=== PATIENT | male | born 1940 | race Caucasian/White ===

== ENCOUNTER 2018-07-19 08:48 | Outpatient (CLI) | payer MEDICARE, SELFPAY ==
[2018-07-19 13:28] LABS: CREATININE 1.11 mg/dL (0.70-1.30); Magnesium 1.6 mg/dL (1.8-2.4); Potassium 4.1 mmol/L (3.5-5.1)
[2018-07-19 14:35] LABS: Hemoglobin A1C 6.7 % (4.5-6.2)
== END 2018-07-19 09:08 ==
PROVIDERS: PCP Family Medicine; Visit Provider Family Medicine
DX: E11.9 Type 2 diabetes mellitus without complications (principal); I10 Essential (primary) hypertension
CPT/HCPCS: 36415; 82565; 83036; 83735; 84132

== ENCOUNTER 2019-01-21 10:38 | Outpatient (CLI) | payer MEDICARE, SELFPAY ==
[2019-01-21 13:06] LABS: Hemoglobin A1C 8.2 % (4.5-6.2)
[2019-01-21 14:37] LABS: Potassium 4.6 mmol/L (3.5-5.1)
== END 2019-01-21 10:58 ==
PROVIDERS: PCP Family Medicine; Visit Provider Family Medicine
DX: E11.9 Type 2 diabetes mellitus without complications (principal)
CPT/HCPCS: 36415; 83036; 84132

== ENCOUNTER 2019-03-29 17:02 | Emergency (ER) | payer MEDICARE, SELFPAY ==
[2019-03-29] VITALS (36 sets, daily range): BP systolic 116–142; BP diastolic 54–118; PULSE 56–77; RESP 10–22; TEMP 36.6–37.1; O2SAT 91–97
--- NOTE | 2019-03-29 17:17 | W.ED.GENAD ---
Discharge Plan Disposition Patient Disposition: HOME Condition: Stable Discharge Details Chief Complaint: Dizzy/Sync Clinical Impression: Vertigo, Pre-syncope Primary Care Provider: Wes Enrique ED Provider: Raiza Gallo Home Meds and New Rx's Prescriptions: Continued alprazolam 0.5 mg tablet 0.5 mg PO HS PRN (Reason: insomnia) Qty: 10 RF: 0 chlorthalidone 25 mg tablet 25 mg PO DAILY RF: 0 empagliflozin-metformin 10-1,000 mg tablet, IR - ER, biphasic 24hr 1 tab PO DAILY Qty: 30 RF: 5 fluoxetine 10 mg tablet 10 mg PO DAILY Qty: 30 RF: 2 lisinopril 20 mg tablet 20 mg PO DAILY Qty: 90 RF: 3 (DME) Accu-Chek Guide strip See Dose Instructions .ROUTE .MEDSUPPLY Qty: 100 RF: 3 (DME) lancets [Accu-Chek Multiclix Lancet] misc See Dose Instructions .ROUTE .MEDSUPPLY Qty: 100 RF: 3 acetaminophen [Mapap Extra Strength] 500 MG tablet 1,000 mg PO PRN PRNRF: 0 Discharge Instructions Instructions: Vertigo (ED), Near Syncope (ED) Additional Instructions: Please return to the emergency department he develop any new or worsening symptoms or if you become otherwise concerned. It is extremely important that you call soon as possible to make an appointment to be seen in follow-up this visit by primary care doctor. You will need to have further evaluation for possible transient ischemic attack, which may include MRI of the brain, carotid ultrasounds, and echocardiogram of the heart, in addition to cardiac monitoring for possible cardiac arrhythmia. You have elected to leave the emergency department as opposed to being admitted as was recommended, you may change her mind at any time and return to the emergency department. Referrals: Wes Enrique [Primary Care Provider] - Discharge Data Discharge Date/Time-TO BE ENTERED AT DEPARTURE: 03/29/19 20:47 Medical Decision Making Cameron Mondragon is a 78-year-old man with a history of diabetes, hypertension who presented to the emergency department with episode of vertigo/presyncope after having just eaten very large meal, followed by persistent vertigo and then vomiting after which all symptoms resolved. Patient is now a symptomatic. Benign cardiopulmonary exam. Benign neurologic exam. Concern for CVA/TIA, metabolic/lyte disturbance, arrhythmia. Doubt ACS. Exam/history is not consistent with acute aortic pathology, PE, sepsis. Plan for EKG, chest x-ray, screening labs, CT head. Cannot obtain MRI at this time due to hours, anticipate admission for possible TIA. CT, chest x-ray nondiagnostic. Labs nondiagnostic. Patient continues to be symptomatic. Plan for admission for TIA. I discussed the patient with Dr. Garcia. Dr. Garcia discussed admission with the patient, who refuses admission at this time. He would like to follow-up with his primary care doctor for outpatient heart monitoring and further outpatient studies/evaluation. I discussed with patient the risks of leaving AGAINST MEDICAL ADVICE including , permanent disability, and patient continued to refuse admission. I had a lengthy discussion with the patient regarding return to emergency department precautions, that he may return to the emergency department anytime should he change his mind, and importance of outpatient follow-up. Patient verbalized understanding of the plan was amenable. Patient had decision-making capacity at time of this discussion. Patient was discharged home with clear plan for outpatient follow-up. All questions were answered. Medical Records Medical records reviewed: Yes I reviewed the patient's medical records. Imaging Data Radiologic Study: Attestation: I personally reviewed and interpreted this imaging study as follows: Radiologist's impression: EXAM: XR Chest, 2 Views EXAM DATE/TIME: 03/29/2019 5:46 PM CLINICAL HISTORY: 78 years old, male; Other: Weakness TECHNIQUE: Imaging protocol: XR of the chest, 2 views. COMPARISON: CR CHEST 2 VIEWS PA,LAT 01/02/2016 17:00 FINDINGS: Lungs: Unremarkable. No consolidation. Pleural space: Unremarkable. No pleural effusion. No pneumothorax. Heart/Mediastinum: Unremarkable. No cardiomegaly. Bones/joints: Unremarkable. IMPRESSION: No acute findings. EXAM: CT Head Without Contrast EXAM DATE/TIME: 03/29/2019 5:46 PM CLINICAL HISTORY: 78 years old, male; Dizziness TECHNIQUE: Imaging protocol: Computed tomography images of the head without contrast. Coronal and sagittal reformatted images were created and reviewed. Radiation optimization: All CT scans at this facility use at least one of these dose optimization techniques: automated exposure control; mA and/or kV adjustment per patient size (includes targeted exams where dose is matched to clinical indication); or iterative reconstruction. COMPARISON: No relevant prior studies available. 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 Mild small vessel ischemic white matter changes of aging. No evidence for acute hemorrhage or stroke. Ventricles: Moderate ventriculomegaly and prominent cortical sulci. Bones/joints: Unremarkable. No acute fracture. Sinuses: Visualized sinuses are unremarkable. No fluid levels. Mastoid air cells: Visualized mastoid air cells are well aerated. No mastoid effusion. Soft tissues: Unremarkable. IMPRESSION: No acute intracranial abnormality. Lab Data Lab results reviewed: Yes I reviewed the patient's lab results. Laboratory Tests Range/Units 03/29/19 03/29/19 03/29/19 17:24 17:24 18:30 WBC (4.4-10.8) k/cumm 6.79 RBC (4.50-6.00) m/cumm 4.75 Hgb (13.5-17.5) g/dL 13.9 Hct (40.0-50.0) % 41.9 MCV (80-95) fL 88.2 MCH (27.0-33.0) pg 29.3 MCHC (32.0-36.0) g/dL 33.2 RDW (11.8-14.1) % 14.4 H Plt Count (130-400) x1000/uL 231 MPV (8.0-11.0) fL 9.6 Immature Gran % 0.0 Neutrophils % 63.6 Lymphocytes % 27.5 Monocytes % 7.8 Eosinophils % 0.7 Basophils % 0.4 Absolute Neutrophils (1.2-6.7) k/cumm 4.31 Absolute Lymphocytes (1.2-3.4) k/cumm 1.87 Absolute Monocytes (0.11-0.7) k/cumm 0.53 Absolute Eosinophils (0.0-0.7) k/cumm 0.05 Absolute Basophils (0.0-0.2) k/cumm 0.03 Sodium (136-145) mmol/L 136 Potassium (3.5-5.1) mmol/L 3.8 Chloride (98-107) mmol/L 101 Carbon Dioxide (21.0-32.0) mmol/L 22.0 Anion Gap (3-11) mmol/L 13.0 H BUN (7-18) mg/dL 26 H Creatinine (0.70-1.30) mg/dL 0.97 Estimated GFR/1.73 m2 (mL/min/1.73m2) >= 60.00 Glucose (70-100) mg/dL 185 H Calcium (8.5-10.1) mg/dL 9.0 Total Bilirubin (0.2-1.0) mg/dL 0.7 AST (15-37) U/L 22 ALT (12-78) U/L 36 Alkaline Phosphatase (46-116) U/L 36 L Troponin I (0.00-0.06) ng/mL < 0.05 Total Protein (6.4-8.2) g/dL 7.2 Albumin (3.4-5.0) g/dL 3.8 Urine Color (Yellow) Yellow Urine Clarity (Clear) Clear Urine pH (5-8) 5.0 Ur Specific [place] (1.005-1.025) 1.010 Urine Protein (Negative) mg/dL Negative Urine Ketones (Negative) mg/dL 15 H Urine Blood (Negative) Negative Urine Nitrite (Negative) Negative Urine Bilirubin (Negative) Negative Urine Urobilinogen (Up TO 0.2) EU/dL 0.2 Ur Leukocyte Esterase (Negative) Negative Urine Glucose (Negative) mg/dL 500 H ECG Data Attestation: I personally reviewed and interpreted this ECG (s) as follows: Interpretation: EKG shows sinus rhythm at 78 with occasional PAC, no STEMI, nondiagnostic EKG HPI General Mode of arrival: EMS. Date/Time Provider Initiated Documentation: 03/29/19 17:17. Limitations to Documentation: no limitations. Information obtained by: patient, RN notes reviewed and old records reviewed. HPI Narrative: Cameron Mondragon is a 78-year-old man with a history of hypertension, diabetes presenting to the emergency department with vertigo. Patient reports that he drove home from [place] this morning, ate an unusually large meal upon arriving at home, and directly after eating developed a sensation of spinning, patient also felt that he might pass out. Sensation of lightheadedness seem to possible patient was still seated however vertigo persisted. Patient reports that he got up out of his seat and had difficulty with walking. Patient states that he felt like he was drunk. Patient reports that spinning sensation continued and he called the ambulance. Upon arrival of EMS, patient reports that he vomited twice, and his symptoms resolved. Patient reports that he currently feels very well in his usual state of health. Patient reports that prior to this occurrence earlier today, he has been feeling very well. No fevers, no pain, no shortness of breath, no cough, no diarrhea, no numbness, no weakness. No recent long distance travel. Prior to today has been eating and drinking as usual. Related Data Home Medications Medication Instructions Recorded Confirmed acetaminophen [Mapap Extra 1,000 mg PO PRN PRN 12/21/16 03/31/19 Strength] blood sugar diagnostic #100 each 09/28/18 03/31/19 lisinopril 20 mg tablet 20 mg PO DAILY #90 tab 09/28/18 03/31/19 empagliflozin 10 mg-metformin ER 1 tab PO DAILY #30 tab 10/05/18 03/31/19 1,000 mg tablet,extended release 24hr lancets #100 each 11/11/18 03/31/19 alprazolam 0.5 mg tablet 0.5 mg PO HS PRN #10 tab 01/21/19 03/31/19 chlorthalidone 25 mg tablet 25 mg PO DAILY 02/09/19 03/31/19 fluoxetine 10 mg tablet 10 mg PO DAILY #30 tab 03/08/19 03/31/19 Previous Rx's Medication Instructions Recorded blood sugar diagnostic #100 each 09/28/18 lisinopril 20 mg tablet 20 mg PO DAILY #90 tab 09/28/18 empagliflozin 10 mg-metformin ER 1 tab PO DAILY #30 tab 10/05/18 1,000 mg tablet,extended release 24hr lancets #100 each 11/11/18 alprazolam 0.5 mg tablet 0.5 mg PO HS PRN #10 tab 01/21/19 fluoxetine 10 mg tablet 10 mg PO DAILY #30 tab 03/08/19 Allergies Allergy/AdvReac Type Severity Reaction Status Date / Time Penicillins Allergy Severe Anaphylaxsi Unverified 03/31/19 13:44 s General Stated Complaint: Dizzy/Sync JYOTI: 3 Review of Systems Review of Systems Constitutional: denies fevers Eyes: denies eye pain ENT: denies facial pain, dental pain, sore throat Cardiovascular: denies chest pain, edema, reports lightheadedness Respiratory: denies SOB, cough GI: denies abdominal pain, vomiting, diarrhea : denies flank pain MSK: denies back pain, neck pain, arthralgias, myalgias Skin: Denies rash Neuro: denies headaches, numbness, weakness, reports vertigo, ataxia COUNT INCLUDES THE [facility] Medical History Borderline type 2 diabetes mellitus BPH (benign prostatic hyperplasia) ED (erectile dysfunction) HTN (hypertension) Overweight Sleep apnea Social History Smoking/Tobacco Use Status: Never Drug use: Never Substance use type: does not use Do you feel safe at home: Yes Do you feel safe in your relationship?: Yes Exam Narrative Exam Narrative: Constitutional: well and [id number], pleasant, conversing normally HENT: head atraumatic/normocephalic/normal inspection, mucous membranes moist Eyes: conjunctiva normal, sclera normal, pupils 3mm b/l ERRLA, extraocular movements intact without nystagmus Neck: no stridor, normal ROM, trachea midline Chest: normal inspection Resp: normal work of breathing, LCTAB Cardio: normal rate, normal rhythm, no murmur appreciated GI: abdomen soft, non-tender, non-distended Back: normal inspection, no rash Skin: warm, dry, normal color, no rash Neuro: alert, not altered, cranial nerves II through XII intact, motor 5 out of 5 throughout, normal tone Ext: no edema no posterior calf tenderness to palpation Psych: normal mood, normal affect, normal behavior Course Vital Signs Temperature 36.6 C 03/29/19 17:09 Pulse 64 03/29/19 17:09 Respiratory Rate 12 03/29/19 17:09 Blood Pressure 142/65 H 03/29/19 17:09 Pulse Oximetry 97 03/29/19 17:09 Temperature 36.6 C 03/29/19 17:09 Temperature Source Skin 03/29/19 17:09 Pulse 64 03/29/19 17:09 Respiratory Rate 12 03/29/19 17:09 Respiratory Effort Non-Labored 03/29/19 17:12 Blood Pressure 142/65 H 03/29/19 17:09 Blood Pressure Position Sitting 03/29/19 17:09 Pulse Oximetry 97 03/29/19 17:09 Oxygen Delivery Method Room Air 03/29/19 17:09 Oxygen Flow Rate 0 03/29/19 17:09
--- NOTE | 2019-03-29 17:45 | DI.COMBO_ITS ---
SYMPTOM/DIAGNOSIS: LIGHTHEADEDNESS, VERTIGO PA AND LATERAL CHEST: Comparison is made with 06/28/16. The heart size is normal. The lungs are well inflated and clear. No infiltrate, effusion or pneumothorax is seen. IMPRESSION: Negative chest xray. NONCONTRAST HEAD CT: There is mild atrophy consistent with the patient's age. 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 No acute infarct, hemorrhage or mass is seen. There is no skull fracture visualized. The sinuses and mastoid air cells appear clear. IMPRESSION: No acute abnormality.
[2019-03-29 18:16] LABS: Absolute Basophil Count 0.03 k/cumm (0.0-0.2); Absolute Eosinophil Count 0.05 k/cumm (0.0-0.7); Absolute Lymphocyte Count 1.87 k/cumm (1.2-3.4); Absolute Monocyte Count 0.53 k/cumm (0.11-0.7); Absolute Neutrophil Count 4.31 k/cumm (1.2-6.7); Basophils % 0.4; Eosinophils % 0.7; HCT 41.9 % (40.0-50.0); HGB 13.9 g/dL (13.5-17.5); Lymphocytes % 27.5; Mean Corp. HGB Concentration 33.2 g/dL (32.0-36.0); Mean Corpuscular Hemoglobin 29.3 pg (27.0-33.0); Mean Corpuscular Volume 88.2 fL (80-95); Mean Platelet Volume 9.6 fL (8.0-11.0); Monocytes % 7.8; Neutrophils % 63.6; Platelet Count 231 x1000/uL (130-400); RBC 4.75 m/cumm (4.50-6.00); RBC Distribution Width 14.4 % (11.8-14.1); White Blood Cell Count 6.79 k/cumm (4.4-10.8)
[2019-03-29 18:20] LABS: ALT 36 U/L (12-78); AST 22 U/L (15-37); Albumin 3.8 g/dL (3.4-5.0); Alkaline Phosphatase 36 U/L (46-116); BUN 26 mg/dL (7-18); Bilirubin, Total 0.7 mg/dL (0.2-1.0); CREATININE 0.97 mg/dL (0.70-1.30); Chloride 101 mmol/L (98-107); Glucose 185 mg/dL (70-100); Potassium 3.8 mmol/L (3.5-5.1); Sodium 136 mmol/L (136-145); Total Protein 7.2 g/dL (6.4-8.2)
[2019-03-29 18:21] LABS: Troponin I < 0.05 ng/mL (0.00-0.06)
[2019-03-29 18:36] LABS: Bilirubin Negative (Negative); Blood Negative (Negative); Clarity Clear (Clear); Glucose 500 mg/dL (Negative); Ketones 15 mg/dL (Negative); Leukocyte Esterase Negative (Negative); Nitrite Negative (Negative); Urobilinogen 0.2 EU/dL (Up TO 0.2)
--- NOTE | 2019-03-29 18:52 | DI.VRAD_ITS ---
EXAM: CT Head Without Contrast EXAM DATE/TIME: 03/29/2019 5:46 PM CLINICAL HISTORY: 78 years old, male; Dizziness TECHNIQUE: Imaging protocol: Computed tomography images of the head without contrast. Coronal and sagittal reformatted images were created and reviewed. Radiation optimization: All CT scans at this facility use at least one of these dose optimization techniques: automated exposure control; mA and/or kV adjustment per patient size (includes targeted exams where dose is matched to clinical indication); or iterative reconstruction. COMPARISON: No relevant prior studies available. 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 Mild small vessel ischemic white matter changes of aging. No evidence for acute hemorrhage or stroke. Ventricles: Moderate ventriculomegaly and prominent cortical sulci. Bones/joints: Unremarkable. No acute fracture. Sinuses: Visualized sinuses are unremarkable. No fluid levels. Mastoid air cells: Visualized mastoid air cells are well aerated. No mastoid effusion. Soft tissues: Unremarkable. IMPRESSION: No acute intracranial abnormality. Dictated and Authenticated by: Padma Richardson MD. Ordering:MICHELLE Eastman MD
--- NOTE | 2019-03-29 18:53 | DI.VRAD_ITS ---
EXAM: XR Chest, 2 Views EXAM DATE/TIME: 03/29/2019 5:46 PM CLINICAL HISTORY: 78 years old, male; Other: Weakness TECHNIQUE: Imaging protocol: XR of the chest, 2 views. COMPARISON: CR CHEST 2 VIEWS PA,LAT 01/02/2016 17:00 FINDINGS: Lungs: Unremarkable. No consolidation. Pleural space: Unremarkable. No pleural effusion. No pneumothorax. Heart/Mediastinum: Unremarkable. No cardiomegaly. Bones/joints: Unremarkable. IMPRESSION: No acute findings. Dictated and Authenticated by: Padma Richardson MD. Ordering:MICHELLE Eastman MD
== END 2019-03-29 20:47 | disposition home or self-care (01) ==
PROVIDERS: Emergency Provider Student in an Organized Health Care Education/Training Program; PCP Family Medicine
DX: R42 Dizziness and giddiness (principal); R11.2 Nausea with vomiting, unspecified; E11.9 Type 2 diabetes mellitus without complications; Z79.84 Long term (current) use of oral hypoglycemic drugs; I10 Essential (primary) hypertension
CPT/HCPCS: 36415; 80053; 93005; 99285; 70450; 71046; 81003; 84484; 85025; 93010

== ENCOUNTER 2019-04-13 20:59 | Emergency (ER) | payer MEDICARE, SELFPAY ==
[2019-04-13 21:04] VITALS: BP 156/71; PULSE 68; RESP 18; TEMP 36.8; O2SAT 95
[2019-04-13] MEDS: Lidocaine/Epinephri/Tetracaine Topical Gel 3 ML TP (21:56)
[2019-04-13 22:00] LABS: Bilirubin Negative (Negative); Blood Small (Negative); Clarity Clear (Clear); Glucose 500 mg/dL (Negative); Ketones Negative (Negative); Leukocyte Esterase Negative (Negative); Nitrite Negative (Negative); Specific Gravity 1.015 (1.005-1.025); Urobilinogen 0.2 EU/dL (Up TO 0.2); pH 5.5 (5-8)
--- NOTE | 2019-04-13 22:15 | ED.GENADUL_ITS ---
Discharge Plan Disposition Patient Disposition: HOME Discharge Details Chief Complaint: Trauma Clinical Impression: Fall, Contusion of lower back, Hematuria Primary Care Provider: Wes Enrique ED Provider: Roman Gallo Home Meds and New Rx's Prescriptions: Continued alprazolam 0.5 mg tablet 0.5 mg PO HS PRN (Reason: insomnia) Qty: 10 RF: 0 chlorthalidone 25 mg tablet 25 mg PO DAILY RF: 0 empagliflozin-metformin 10-1,000 mg tablet, IR - ER, biphasic 24hr 1 tab PO DAILY Qty: 30 RF: 5 fluoxetine 10 mg tablet 10 mg PO DAILY Qty: 30 RF: 2 lisinopril 20 mg tablet 20 mg PO DAILY Qty: 90 RF: 3 (DME) Accu-Chek Guide strip See Dose Instructions .ROUTE .MEDSUPPLY Qty: 100 RF: 3 (DME) lancets [Accu-Chek Multiclix Lancet] misc See Dose Instructions .ROUTE .MEDSUPPLY Qty: 100 RF: 3 acetaminophen [Mapap Extra Strength] 500 MG tablet 1,000 mg PO PRN PRNRF: 0 metformin 1,000 mg Tablet 1,000 mg PO HS RF: 0 Discharge Instructions Instructions: Fall Prevention for Older Adults (ED), Hematuria (ED), Contusion in Adults (ED) Additional Instructions: Please follow-up with your doctor. Return to the ER for worsening or new concerning symptoms. Referrals: Wes Enrique. [Primary Care Provider] - Medical Decision Making 10:10p -- 78yo m here after fall from 2 ft stool to floor, impacting stool rt low back, with right low back pain and tenderness. Mild hypertension. Not tachycardic. Abdominal exam benign. Patient also with laceration to left 2nd digit without bleeding and abrasion rt leg. Discussed with patient differential diagnosis regarding traumatic injury to rt flank - I specifically discussed potential for life threatening and lifestyle modifying disease including retroperitoneal hemorrhage vs contusion vs renal injury. We discussed diagnostics for ruling out traumatic injury - patient provided informed refusal of CT imaging. He agrees to urinalysis understanding diagnostic limitations of this study. LET applied to wound. Plan for wound irrigatedand primary closure. Tetanus utd per paralegal legal secretary. 10:30p -- Patient refusing wound irrigation and primary closure. I discussed risk of not appropriately treating and he verbalized understanding and provided informed refusal noting that he has had similar lacerations in the past that healed well and that he feels it is already healing. He was agreeable to topical antibioic and sterile dressing. UA reveals hematuria. Plan to CT abd and pelv. He agrees with CT. 11:30p -- CT interpreted by radiology: IMPRESSION: 1. No acute findings. 2. Cholelithiasis. 3. Colonic diverticulosis. Results d/w patient. Patient reassessed and remained stable. Patient advised to follow-up with PCP regarding hematuria. HPI General Mode of arrival: ambulatory . Date/Time Provider Initiated Documentation: 04/13/19 21:22 . Limitations to Documentation: no limitations . Information obtained by: patient . HPI Narrative: 78-year-old male presents with chief complaint of right low back pain after fall from 2 foot stool to the ground. Patient notes he landed on the stool and impacted his right low back. This occurred about 45 minutes prior to arrival. Pain is mild to moderate and worse on palpation of the area. He denies associated abdominal pain. No hematuria. No head trauma or loss of consciousness. No neck pain. No chest pain or abdominal pain. Patient notes he is not on any blood thinners or antiplatelet agents. He also sustained abrasion to his right leg and laceration to left second digit. Related Data Home Medications Medication Instructions Recorded Confirmed acetaminophen [Mapap Extra 1,000 mg PO PRN PRN 12/21/16 04/13/19 Strength] blood sugar diagnostic #100 each 09/28/18 03/31/19 lisinopril 20 mg tablet 20 mg PO DAILY #90 tab 09/28/18 04/13/19 empagliflozin 10 mg-metformin ER 1 tab PO DAILY #30 tab 10/05/18 04/13/19 1,000 mg tablet,extended release 24hr lancets #100 each 11/11/18 03/31/19 alprazolam 0.5 mg tablet 0.5 mg PO HS PRN #10 tab 01/21/19 03/31/19 chlorthalidone 25 mg tablet 25 mg PO DAILY 02/09/19 04/13/19 fluoxetine 10 mg tablet 10 mg PO DAILY #30 tab 03/08/19 03/31/19 metformin 1,000 mg PO HS 04/13/19 04/13/19 Previous Rx's Medication Instructions Recorded blood sugar diagnostic #100 each 09/28/18 lisinopril 20 mg tablet 20 mg PO DAILY #90 tab 09/28/18 empagliflozin 10 mg-metformin ER 1 tab PO DAILY #30 tab 10/05/18 1,000 mg tablet,extended release 24hr lancets #100 each 11/11/18 alprazolam 0.5 mg tablet 0.5 mg PO HS PRN #10 tab 01/21/19 fluoxetine 10 mg tablet 10 mg PO DAILY #30 tab 03/08/19 Allergies Allergy/AdvReac Type Severity Reaction Status Date / Time Penicillins Allergy Severe Anaphylaxsi Unverified 03/31/19 13:44 s General Stated Complaint: Trauma JYOTI: 3 Review of Systems Constitutional Denies headache(s) ENT Denies headache(s) Cardiovascular Denies chest pain Gastrointestinal Denies abdominal pain and Denies nausea Genitourinary Denies hematuria Integumentary/Breasts Reports as per HPI Neurologic Denies headache(s) PFSH Social History Smoking/Tobacco Use Status: Never Alcohol Intake: never Drug use: Never Substance use type: does not use Do you feel safe at home: Yes Do you feel safe in your relationship?: Yes Exam Const General: cooperative and no acute distress HENMT Head: normocephalic and atraumatic Mouth: moist mucous membranes Eyes EOM: EOM intact bilaterally Neck Neck: trachea midline and supple Resp Auscultation: clear to auscultation bilaterally, no rales, no rhonchi and no wheezes Cardio Jugular venous pressure: no JVD Rate: regular rate and not tachycardic Rhythm: regular rhythm GI Palpation: soft, not firm, no guarding, no masses, not rigid and nontender Back/Spine/Pelvis Back: back tenderness (rt lower lateral back with abrasion, ttp, no crepitus, no echymosis ) Cervical Spine: cervical ROM normal and other (no midline tenderness) Thoracic/Lumbar Spine: thoracic and lumbar spine normal to inspection Pelvis: no pain with anterior-posterior compression and no pain with lateral com pression Skin General skin exam: no rashes or lesions noted Trauma: abrasion (rt ant lower leg) and laceration (1.5cm left 2nd digit PIP dorsal) Neuro General: alert, awake, oriented x3 and tone normal Extrem General: no edema Psych Appearance: grossly normal Mental Status: mental status grossly normal Course Vital Signs Temperature 36.8 C 04/13/19 21:04 Pulse 68 04/13/19 21:04 Respiratory Rate 18 04/13/19 21:04 Blood Pressure 156/71 H 04/13/19 21:04 Pulse Oximetry 95 04/13/19 21:04 Temperature 36.8 C 04/13/19 21:04 Temperature Source Skin 04/13/19 21:04 Pulse 68 04/13/19 21:04 Respiratory Rate 18 04/13/19 21:04 Respiratory Effort Non-Labored 04/13/19 21:15 Respiratory Depth Normal 04/13/19 21:15 Respiratory Pattern Normal 04/13/19 21:15 Blood Pressure 156/71 H 04/13/19 21:04 Blood Pressure Position Sitting 04/13/19 21:04 Pulse Oximetry 95 04/13/19 21:04 Oxygen Delivery Method Nasal Cannula 04/13/19 21:04 Pain Level 1 04/13/19 21:04
[2019-04-13 22:19] LABS: WBC 0-2 HPF (0-5)
[2019-04-13 22:20] LABS: Bacteria Rare HPF (Negative); C & S Indicated? No; Casts Negative LPF (Negative); Crystals Negative HPF (Negative); Epithelial Cells Rare HPF (Negative); Mucus Negative (Negative); Other Cells Negative (Negative)
[2019-04-13] MEDS: Normal Saline Flush 10 ML SYR IVP (22:42)
[2019-04-13 22:49] LABS: Abs Immature Grans 0.02 k/cumm (0.0-0.09); Absolute Basophil Count 0.04 k/cumm (0.0-0.2); Absolute Eosinophil Count 0.06 k/cumm (0.0-0.7); Absolute Lymphocyte Count 1.84 k/cumm (1.2-3.4); Absolute Monocyte Count 0.48 k/cumm (0.11-0.7); Absolute Neutrophil Count 5.17 k/cumm (1.2-6.7); Basophils % 0.5; Eosinophils % 0.8; HCT 46.8 % (40.0-50.0); HGB 15.2 g/dL (13.5-17.5); Immature Grans % 0.3; Lymphocytes % 24.2; Mean Corp. HGB Concentration 32.5 g/dL (32.0-36.0); Mean Corpuscular Hemoglobin 29.2 pg (27.0-33.0); Mean Platelet Volume 9.2 fL (8.0-11.0); Monocytes % 6.3; Neutrophils % 67.9; Platelet Count 297 x1000/uL (130-400); RBC Distribution Width 14.3 % (11.8-14.1); White Blood Cell Count 7.61 k/cumm (4.4-10.8)
[2019-04-13] MEDS: Omnipaque 350 MG/ML 100 ML BTL IJ (22:49)
--- NOTE | 2019-04-13 22:55 | DI.CT_ITS ---
SYMPTOM/DIAGNOSIS: FALL, IMPACTING RT LOW BACK, TTP RT LOW BACK CT ABDOMEN AND PELVIS: CT scan of the abdomen and pelvis was performed following the uneventful administration of intravenous contrast material. Comparison is 08/12/17 No acute findings are seen in the lung bases. There is diffuse decreased attenuation of the liver, consistent with fatty infiltration. No hepatic mass or laceration is present. The portal, superior mesenteric and splenic veins are patent. There stones seen within the gallbladder. No biliary ductal dilatation is present. The pancreas is unremarkable. The spleen is normal in size. There are varices seen in the left upper quadrant. The adrenal glands are unremarkable. The kidneys show normal and symmetric enhancement. No suspicious renal mass or obstruction is seen. The urinary bladder is intact. There does appear to be a diverticulum arising from the right aspect of the bladder. The prostate gland appears enlarged. There does appear to be a defect in the bladder suggesting a prior TURP. There is diverticulosis of the colon but no evidence of acute diverticulitis. No evidence of bowel obstruction or inflammation. There is a normal appendix present. The aorta is of normal caliber. No significant abdominal or pelvic adenopathy, ascites or pneumoperitoneum seen. Degenerative changes are seen in the spine. No acute fracture is appreciated. IMPRESSION: No acute abnormality. Chronic findings in the abdomen and pelvis as described above.
[2019-04-13 23:03] LABS: ALT 45 U/L (12-78); AST 27 U/L (15-37); Albumin 4.3 g/dL (3.4-5.0); Alkaline Phosphatase 37 U/L (46-116); BUN 32 mg/dL (7-18); Bilirubin, Total 0.6 mg/dL (0.2-1.0); CREATININE 1.06 mg/dL (0.70-1.30); Calcium 9.8 mg/dL (8.5-10.1); Chloride 100 mmol/L (98-107); Glucose 168 mg/dL (70-100); Sodium 138 mmol/L (136-145); Total Protein 8.7 g/dL (6.4-8.2)
--- NOTE | 2019-04-13 23:13 | DI.VRAD_ITS ---
EXAM: CT Abdomen and Pelvis With Contrast EXAM DATE/TIME: 04/13/2019 10:36 PM CLINICAL HISTORY: 78 years old, male; Injury or trauma; Fall; Initial encounter; Blunt; Injury date: 04/13/2019; Injury details: Fell from stool, impacted right lower back with board, microscopic hematuria TECHNIQUE: Imaging protocol: Computed tomography images of the abdomen and pelvis with intravenous contrast. Radiation optimization: All CT scans at this facility use at least one of these dose optimization techniques: automated exposure control; mA and/or kV adjustment per patient size (includes targeted exams where dose is matched to clinical indication); or iterative reconstruction. Contrast material: [id number]; Contrast volume: 100 ml; Contrast route: IV RAC 20G; COMPARISON: CT ABD PELVIS WITH CONTRAST 08/12/2017 3:32 AM FINDINGS: Liver: No suspicious lesions. Gallbladder and bile ducts: Several stones in the gallbladder. Pancreas: Unremarkable. No ductal dilation. Spleen: No suspicious lesions. Adrenals: Unremarkalbe. No suspicious mass. Kidneys and ureters: Unremarkable. No hydro. No suspicious lesions. Stomach and bowel: Colonic diverticulosis. Appendix: No evidence of appendicitis. Intraperitoneal space: No free air. No significant fluid collection. Vasculature: Unremarkable. No acute findings Lymph nodes: Unremarkable. Bladder: Unremarkable as visualized. Reproductive: Large prostate gland with findings suggesting a TURP. Bones/joints: No acute fracture. No dislocation. Soft tissues: Unremarkable. IMPRESSION: 1. No acute findings. 2. Cholelithiasis. 3. Colonic diverticulosis. Dictated and Authenticated by: Regis Guzman MD. Ordering:[id number] Owens MD
[2019-04-13 23:20] VITALS: BP 128/76; PULSE 65; RESP 16; TEMP 36.9; O2SAT 95
== END 2019-04-13 23:28 | disposition home or self-care (01) ==
PROVIDERS: Emergency Provider Student in an Organized Health Care Education/Training Program; PCP Family Medicine
DX: S30.0XXA Contusion of lower back and pelvis, initial encounter (principal); R31.9 Hematuria, unspecified; S61.211A Laceration without foreign body of left index finger without damage to nail, initial encounter; S80.811A Abrasion, right lower leg, initial encounter; W08.XXXA Fall from other furniture, initial encounter; I10 Essential (primary) hypertension; E11.9 Type 2 diabetes mellitus without complications; Z79.84 Long term (current) use of oral hypoglycemic drugs
CPT/HCPCS: 36415; 80053; 99285; 74177; 81003; 81015; 85025; 99284; J3490

== ENCOUNTER 2019-04-22 11:19 | Outpatient (CLI) | payer MEDICARE, SELFPAY ==
[2019-04-22 12:48] LABS: Hemoglobin A1C 7.8 % (4.5-6.2)
== END 2019-04-22 11:39 ==
PROVIDERS: PCP Family Medicine; Visit Provider Family Medicine
DX: E11.9 Type 2 diabetes mellitus without complications (principal)
CPT/HCPCS: 36415; 83036

== ENCOUNTER 2019-10-12 10:08 | Outpatient (CLI) | payer MEDICARE, SELFPAY ==
[2019-10-12 12:37] LABS: Calculated LDL 41 mg/dL (<100); Cholesterol 158 mg/dL (<200); HDL Cholesterol 90 mg/dL (40-60); Triglyceride 137 mg/dL (<150)
[2019-10-12 13:36] LABS: Hemoglobin A1C 7.5 % (3.8-5.6)
== END 2019-10-12 10:28 ==
PROVIDERS: Nurse Practitioner Family; PCP Family Medicine; Visit Provider Family Medicine
DX: E11.65 Type 2 diabetes mellitus with hyperglycemia (principal)
CPT/HCPCS: 36415; 80061; 83036

== ENCOUNTER 2020-03-16 08:30 | Day surgery (SDC) | payer MEDICARE, SELFPAY ==
[2020-03-16 08:49] VITALS: BP 147/77; PULSE 74; RESP 16; TEMP 36.1; O2SAT 16
[2020-03-16] MEDS: Lactated Ringers 1,000 ML 80 ML IV (09:18)
[2020-03-16] MEDS: CLINDAMYCIN 600 MG/50 ML BAG 100 MG IVPB (10:24)
[2020-03-16] MEDS: Bupivacaine 0.5% Pres-Free 30 ML VIAL (10:31)
[2020-03-16] MEDS: Dexamethasone 10 MG/ML VIAL 4 MG IJ (10:50)
--- NOTE | 2020-03-16 10:57 | ROE_ITS ---
Date of service: 03/16/20 Time of Service: 10:57 Operative Note Operative Note DATE OF PROCEDURE: 03/16/20 PRE-OP DIAGNOSIS: Hammertoe deformity right fifth digit POST-OP DIAGNOSIS: same PROCEDURE: Arthroplasty right fifth digit SURGEON: Scooby Wilks ANESTHESIA: local ESTIMATED BLOOD LOSS: 1 PATHOLOGY: none sent COMPLICATIONS: None Patient was transported to: same day Patient's condition: stable Indications: 71-year-old white male with chronic pain associated with a rigidly contracted right fifth hammertoe. Nonoperative treatments have failed to provide relief of symptoms and he has opted for surgical correction. He understands potential for pain, scarring, infection, wound dehiscence, floppy digit, the need for revisional procedures. Informed consents been obtained no promises made final outcome of surgery. Procedure Description: Cameron was brought to the operative suite placed in the supine position with the right fifth digit is anesthetized with 4 cc of a 50: 50 mixture 1% lidocaine with epinephrine, 0.5% Marcaine plain. The foot was then prepped and draped in the usual sterile podiatric fashion. Timeout was performed per [facility] protocol. Attention was directed to the right fifth toe with 2 converging semielliptical incisions were placed dorsal laterally over the PIPJ encompassing the hypertrophic corn. The skin wedge was excised. Soft tissue mobilization was performed and the PIPJ easily identified. With a #15 scalpel a transverse tenotomy capsulotomy was performed right at the joint irsael n. The medial lateral collaterals were released. The head of the proximal phalanx was delivered into the wound. Significant degenerative reticulocyte changes were appreciated. With double-action bone cutting forceps the 80 proximal phalangeal head was resected at its surgical neck. All rough and bony edges were rasped smooth. Excellent correction was identified of the deformity. Copious irrigation was performed. The extensor tendon was repaired end-to-end with 3-0 Vicryl simple interrupted suture technique. The skin was then coapted with simple interrupted suture of 4-0 nylon. 4 mg dexamethasone phosphate was infused proximally deeply into the soft tissue. Xeroform gauze fluff compression dressings were applied. Cameron left the procedure room with vascular status intact, sharp and sponge counts correct. He will be followed by myself in the office next week. Dictated with Margaret naturally speaking accuracy not guaranteed.
--- NOTE | 2020-03-16 11:01 | PDOC.DSDIS_ITS ---
Discharge Plan Disposition Patient Disposition: HOME Condition: Good Discharge Details Reason For Visit: HAMMERTOE (R) 5 Attending Provider: Scooby Wilks Primary Care Provider: Wes Enrique Home Meds and New Rx's Prescriptions: Continued lisinopril 20 mg tablet 20 mg PO DAILY Qty: 90 RF: 3 metformin 1,000 mg tablet 1,000 mg PO HS Qty: 90 RF: 3 empagliflozin-metformin 10-1,000 mg tablet, IR - ER, biphasic 24hr 1 tab PO DAILY Qty: 30 RF: 11 chlorthalidone 25 mg tablet 25 mg PO DAILY Qty: 90 RF: 3 (DME) FreeStyle Sven 14 Day [place] Misc See Rx Instructions .ROUTE .MEDSUPPLY Qty: 1 RF: 0 (DME) FreeStyle Sven 14 Day Sensor Kit See Rx Instructions .ROUTE .MEDSUPPLY Qty: 2 RF: 11 (DME) blood-glucose meter [Accu-Chek Guide Glucose Meter] Misc See Rx Instructions .ROUTE .MEDSUPPLY Qty: 1 RF: 0 (DME) Accu-Chek Guide test strips Strip See Dose Instructions .ROUTE .MEDSUPPLY Qty: 100 RF: 3 (DME) Accu-Chek Guide test strips Strip See Rx Instructions .ROUTE .MEDSUPPLY Qty: 100 RF: 3 (DME) lancets [Accu-Chek Multiclix Lancet] Misc See Dose Instructions .ROUTE .MEDSUPPLY Qty: 100 RF: 3 Discharge Instructions Activity:: Activity as Tolerated Remove Dressings/Wound Care:: Do Not Remove Shower/Bathe:: Cover Diet:: Normal Diet Discharge Orders Discharge Orders: Discharge Order (Routine); Ordered 03/16/20 Ordered By: Scooby Wilks DS: Diagnosis Discharge Diagnosis (1) Hammertoe of right foot: Status: Acute
== END 2020-03-16 11:22 | disposition home or self-care (01) ==
PROVIDERS: PCP Family Medicine; Visit Provider Podiatrist
PROC: (CPT 28285; principal; 2020-03-16 10:00)
DX: M20.41 Other hammer toe(s) (acquired), right foot (principal)
CPT/HCPCS: 28285; J1100

== ENCOUNTER 2020-08-09 02:32 | Outpatient (CLI) | payer MEDICARE, SELFPAY ==
[2020-08-09 17:34] LABS: Calculated LDL 53 mg/dL (<100); Cholesterol 156 mg/dL (<200); HDL Cholesterol 90 mg/dL (40-60); Potassium 4.4 mmol/L (3.5-5.1); Triglyceride 68 mg/dL (<150)
== END 2020-08-09 02:52 ==
PROVIDERS: PCP Family Medicine; Visit Provider Family Medicine
DX: I10 Essential (primary) hypertension (principal); E78.5 Hyperlipidemia, unspecified
CPT/HCPCS: 36415; 80061; 84132

== ENCOUNTER 2020-09-05 04:14 | Outpatient (CLI) | payer MEDICARE, SELFPAY ==
[2020-09-06 15:08] LABS: COVID-19 RT-PCR UVMMC Result Negative (Negative)
== END 2020-09-05 04:34 ==
PROVIDERS: PCP Family Medicine; Visit Provider Family Medicine
DX: Z20.822 Contact with and (suspected) exposure to COVID-19 (principal)
CPT/HCPCS: U0003

== ENCOUNTER 2021-02-03 03:03 | Emergency (ER) | payer MEDICARE, SELFPAY ==
[2021-02-03 03:08] VITALS: BP 152/96; PULSE 92; RESP 18; TEMP 36.6; O2SAT 97
--- NOTE | 2021-02-03 03:42 | ED.GENADUL_ITS ---
Discharge Plan Disposition Patient Disposition: HOME Condition: Good Discharge Details Clinical Impression: Epistaxis Primary Care Provider: Wes Enrique ED Provider: Gustavo Pederson Home Meds and New Rx's Prescriptions: Continued (DME) FreeStyle Sven 14 Day [place] Misc See Rx Instructions .ROUTE .MEDSUPPLY Qty: 1 RF: 0 (DME) FreeStyle Sven 14 Day Sensor Kit See Rx Instructions .ROUTE .MEDSUPPLY Qty: 2 RF: 11 (DME) blood-glucose meter [Accu-Chek Guide Glucose Meter] Misc See Rx Instructions .ROUTE .MEDSUPPLY Qty: 1 RF: 0 (DME) Accu-Chek Guide test strips Strip See Dose Instructions .ROUTE .MEDSUPPLY Qty: 100 RF: 3 (DME) Accu-Chek Guide test strips Strip See Rx Instructions .ROUTE .MEDSUPPLY Qty: 100 RF: 3 (DME) lancets [Accu-Chek Multiclix Lancet] Misc See Dose Instructions .ROUTE .MEDSUPPLY Qty: 100 RF: 3 lisinopril 20 mg tablet 20 mg PO DAILY Qty: 90 RF: 3 chlorthalidone 25 mg tablet 25 mg PO DAILY Qty: 90 RF: 3 metformin 1,000 mg tablet 1,000 mg PO BID Qty: 180 RF: 3 Discharge Instructions Instructions: Nosebleed (ED) Additional Instructions: Please make sure the inside of your nose is well moisturized with Vaseline every evening before you go to bed and in the morning when you wake up. Please make sure your water reservoir is filled in your CPAP machine if you do use it. Please use the nasal clamp we have provided to help with any small recurrence of bleeding recurs. We have placed a referral with the ear nose throat doctor in this area. You should be getting a call from their office in the next few days to set up an appointment. If you notice any worsening of your symptoms, or any new symptoms such as vomiting, diarrhea, fever, chills, shortness of breath, chest pain, numbness, weakness, or fainting , please return immediately to the emergency department for reevaluation. Please follow up with your primary care provider as soon as possible for reassessment and reevaluation. As always, it was a pleasure participating in your medical care today. Referrals: Shane Langston, [OSTEOPATHIC DOCTOR] - Haider Mckeon MD [ [facility] STAFF PHYSICIAN] - Wes Enrique [Primary Care Provider] - Medical Decision Making This is a pleasant 80-year-old male with a past medical history of hypertension, type 2 diabetes, BPH, and previous nosebleeds who presents today for evaluation of nosebleed. Patient states that over the last 3 days he has had intermittent mild nosebleeds from his left nare, however this evening he woke up and it was notably significant. He came to the ER for further assessment. By the time he arrived in the ER the majority of the bleeding had completely stopped. He denies any pain or trauma. He is not on any blood thinners. He did take a few ibuprofen recently and is unsure if this has led to any of his symptoms. He denies chest pain, shortness of breath, or headache. He denies any digital exploration. He does admit to using his CPAP more recently, which may have contributed. No other complaints at this time. No other modifying factors. Exam demonstrates no active bleeding in the nose at all at this time. No bleeding in the posterior oropharynx. Patient was observed for an extended period here in the emergency department. He developed no recurrence of his nosebleed. No indication for nasal packing or Rhino Rocket at this time. Patient will be sent home with a nasal clamp. Will put in referral at the patient's request for follow-up with ENT for potential cauterization. The patient has had his right nare cauterized in the past. Discussed the importance of keeping his water reservoir filled for his CPAP machine, as well as the importance of avoiding any cold or dry air during sleep. Recommend continued moisturizer to the inside of the nose with Vaseline. I have extensively reviewed the treatment plan and discharge instructions with the patient. I have addressed all patient concerns at this time. The patient was made aware of what symptoms to monitor for that would warrant a return to the emergency department. Discussed the plan with the patient, they demonstrate verbal understanding and agreement with our assessment and plan at this time. The documentation in this chart was dictated using [employer] dictation software. Please excuse any dictation errors. Of note on further discussion with the patient it actually appears that he was taking aspirin today and yesterday for his sore back. I suspect this is likely the largest contributing component to his nosebleed tonight. We have recommended to the patient that he avoid aspirin for the time being. HPI General Date/Time Provider Initiated Documentation: 02/03/21 03:04 . HPI Narrative: This is a pleasant 80-year-old male with a past medical history of hypertension, type 2 diabetes, BPH, and previous nosebleeds who presents today for evaluation of nosebleed. Patient states that over the last 3 days he has had intermittent mild nosebleeds from his left nare, however this evening he woke up and it was notably significant. He came to the ER for further assessment. By the time he arrived in the ER the majority of the bleeding had completely stopped. He denies any pain or trauma. He is not on any blood thinners. He did take a few ibuprofen recently and is unsure if this has led to any of his symptoms. He denies chest pain, shortness of breath, or headache. He denies any digital exploration. He does admit to using his CPAP more recently, which may have contributed. No other complaints at this time. No other modifying factors. Related Data Home Medications Medication Instructions Recorded Confirmed flash glucose scanning reader #1 each 11/08/19 08/07/20 flash glucose sensor #2 each 02/17/20 08/07/20 blood sugar diagnostic #100 each 02/24/20 08/07/20 blood-glucose meter #1 each 02/24/20 08/07/20 blood sugar diagnostic #100 each 03/09/20 08/07/20 lancets #100 each 03/09/20 08/07/20 lisinopril 20 mg tablet 20 mg PO DAILY #90 tab 07/30/20 02/03/21 chlorthalidone 25 mg tablet 25 mg PO DAILY #90 tab 07/31/20 02/03/21 metformin 1,000 mg tablet 1,000 mg PO BID #180 tab 08/20/20 02/03/21 Previous Rx's Medication Instructions Recorded flash glucose scanning reader #1 each 11/08/19 flash glucose sensor #2 each 02/17/20 blood sugar diagnostic #100 each 02/24/20 blood-glucose meter #1 each 02/24/20 blood sugar diagnostic #100 each 03/09/20 lancets #100 each 03/09/20 lisinopril 20 mg tablet 20 mg PO DAILY #90 tab 07/30/20 chlorthalidone 25 mg tablet 25 mg PO DAILY #90 tab 07/31/20 metformin 1,000 mg tablet 1,000 mg PO BID #180 tab 08/20/20 Allergies Allergy/AdvReac Type Severity Reaction Status Date / Time Penicillins Allergy Severe Anaphylaxsi Verified 02/03/21 03:20 s General Stated Complaint: Epistaxis JYOTI: 4 Review of Systems All systems reviewed & are unremarkable except as noted in HPI and below PFSH Medical History Borderline type 2 diabetes mellitus BPH (benign prostatic hyperplasia) [place] [facility] (erectile dysfunction) HTN (hypertension) Overweight Sleep apnea no device Surgical History Colonoscopy - MAC Hydrocelectomy S/P dilation of urethra S/P TURP (transurethral resection of prostate) Transurethral prostatectomy Family History Mother Neoplasm esophageal cancer Father Heart disease Social History Smoking/Tobacco Use Status: Former Tobacco Use Quit Date: 08/24/79 Smoking risk assessment performed?: Yes Alcohol Intake: current Alcohol Intake frequency: holidays/special occasions only Alcohol type: wine Drug use: Never Substance use type: does not use Do you feel safe at home: Yes Do you feel safe in your relationship?: Yes Exam Narrative Exam Narrative: 1.Const: Well-nourished, Well-developed, appearing stated age 2.Eyes: PERRL, no conjunctival injection, and symmetrical lids. 3.ENT: Atraumatic external nose and ears. Moist MM. Neck: Symmetric, trachea midline, No thyromegaly. No evidence of active bleeding in the left or the right nare at this time. Mild old dried blood is noted. Mild dried blood in the mouth, but no bleeding in the posterior oropharynx whatsoever. No large polyps or ulcers that I can appreciate in the nose at this time. 4.CVS: +S1/S2, No murmurs or gallops. Peripheral pulses 2+ and equal in all extremities. Brisk capillary refill in all extremities. 5.RESP: Unlabored respiratory effort. Clear to auscultation bilaterally. No wheezes rales or rhonchi 6.GI: Soft, Nontender/Nondistended, No hepatosplenomegaly. No guarding or rebound. 7.MSK: Normocephalic/Atraumatic, Extremities w/o deformity or ttp No cyanosis or clubbing, Normal movement of all extremities 8.Skin: Warm, Dry. No rashes or lesions. 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 Sensation grossly intact, no focal neurologic deficits. 10.Psych: (AAO) x3. Appropriate mood and affect Course Vital Signs Vital signs: Vital Signs Temperature 36.6 C 02/03/21 03:08 Pulse 92 H 02/03/21 03:08 Respiratory Rate 18 02/03/21 03:08 Blood Pressure 152/96 H 02/03/21 03:08 Pulse Oximetry 97 02/03/21 03:08 Temperature 36.6 C 02/03/21 03:08 Temperature Source Skin 02/03/21 03:08 Pulse 92 H 02/03/21 03:08 Respiratory Rate 18 02/03/21 03:08 Respiratory Effort Non-Labored 02/03/21 03:20 Blood Pressure 152/96 H 02/03/21 03:08 Pulse Oximetry 97 02/03/21 03:08 Pain Level 0 02/03/21 03:08
== END 2021-02-03 04:00 | disposition home or self-care (01) ==
PROVIDERS: Emergency Provider Student in an Organized Health Care Education/Training Program; PCP Family Medicine
DX: R04.0 Epistaxis (principal)
CPT/HCPCS: 99281

== ENCOUNTER 2021-06-22 10:25 | Outpatient (REF) | payer MEDICARE, SELFPAY ==
[2021-06-24 13:05] LABS: COVID-19 RT-PCR UVMMC Result Negative (Negative)
== END 2021-06-23 16:28 | disposition home or self-care (01) ==
LOC: LBN 10:25
PROVIDERS: PCP Family Medicine; Visit Provider Nurse Practitioner Family
DX: Z20.822 Contact with and (suspected) exposure to COVID-19 (principal); R68.2 Dry mouth, unspecified; R53.83 Other fatigue
CPT/HCPCS: U0003

== ENCOUNTER 2022-04-17 16:55 | Outpatient (REF) | payer MEDICARE, SELFPAY | END 2022-04-17 16:56 | disposition home or self-care (01) | LOC: LBN 16:55 | PROVIDERS: PCP Family Medicine; Visit Provider Nurse Practitioner Family | DX: R05.9 Cough, unspecified (principal) | CPT/HCPCS: 87070 ==

== ENCOUNTER 2022-04-20 21:08 | Emergency (ER) | payer MEDICARE, SELFPAY ==
[2022-04-20 21:21] VITALS: BP 130/104; PULSE 71; RESP 18; TEMP 36.9; O2SAT 95
--- NOTE | 2022-04-20 21:43 | ED.GENADUL_ITS ---
Discharge Plan Disposition Patient Disposition: HOME Condition: Stable Discharge Details Clinical Impression: Pneumonia Primary Care Provider: Wes Enrique ED Provider: Demetrius Thompson Home Meds and New Rx's Prescriptions: Continued chlorthalidone 25 mg tablet 25 mg PO DAILY Qty: 90 3RF lisinopril 20 mg tablet 20 mg PO DAILY Qty: 90 3RF (DME) FreeStyle Sven 14 Day [place] Misc See Rx Instructions .ROUTE .MEDSUPPLY Qty: 1 0RF Rx Instructions: As directed (DME) FreeStyle Sven 14 Day Sensor Kit See Rx Instructions .ROUTE .MEDSUPPLY Qty: 2 11RF Rx Instructions: As directed Janumet 50-1,000 mg tablet 1 tab PO BID Qty: 180 3RF (DME) blood-glucose meter [Accu-Chek Guide Glucose Meter] Misc See Rx Instructions .ROUTE .MEDSUPPLY Qty: 1 0RF Rx Instructions: As directed (DME) Accu-Chek Guide test strips Strip See Dose Instructions .ROUTE .MEDSUPPLY Qty: 100 3RF Dose Instruction: As directed Rx Instructions: test daily (DME) lancets [Accu-Chek Multiclix Lancet] Misc See Dose Instructions .ROUTE .MEDSUPPLY Qty: 100 3RF Dose Instruction: As directed Rx Instructions: Test once/day (DME) Accu-Chek Guide test strips Strip See Rx Instructions .ROUTE .MEDSUPPLY Qty: 100 3RF Rx Instructions: test once/day alprazolam 0.5 mg tablet 0.5 mg PO HS PRN (Reason: insomnia) Qty: 5 0RF benzonatate 100 mg capsule 100 mg PO TID PRN (Reason: cough) Qty: 14 0RF levofloxacin 750 mg tablet 750 mg PO DAILY Qty: 4 0RF Discharge Instructions Instructions: Pneumonia (ED) Additional Instructions: Continue to stay well-hydrated and if you develop any new or significant worsening of your symptoms please return immediately to the emergency department for reassessment. Otherwise you have been placed on a follow-up with your primary care provider to ensure that you are appropriately improving. Referrals: Wes Enrique MD [Primary Care Provider] - 5 days Discharge Data Discharge Date/Time-TO BE ENTERED AT DEPARTURE: 04/20/22 21:59 Medical Decision Making Patient presenting to the emergency department for chief complaint of worsening cough and cold symptoms. Patient was diagnosed with pneumonia on Thursday but has been unable to order picker his prescription. He states slight worsening of his cough but otherwise has been hydrating well and denies any severe worsening of symptoms. Physical exam does show some mild diminished lung sounds on the left side with central rhonchi otherwise unremarkable exam, stable vital signs without any noted hypoxia, tachycardia, hypotension. I agree with previous diagnosis do not feel that any further work-up is needed but will give patient initial dose of the Levaquin he was previously prescribed and will switch pharmacies for e- prescription to be sent. Did discuss with patient risk versus benefit of prescription for quinolones which she states clear understanding and is in agreement of this medication given his other medical comorbidities. After discussion of diagnosis and plan of care patient has no further needs, questions, or concerns and states clear understanding to return to the emergency department for any worsening symptoms. This documentation was generated using [email or web address] dictation system, please disregard any oddities of phrase or misspellings. HPI General Mode of arrival: ambulatory . Date/Time Provider Initiated Documentation: 04/20/22 21:17 . Limitations to Documentation: no limitations . Information obtained by: patient, RN notes reviewed and old records reviewed . History of Present Illness 81 year old M presents to the emergency department with the chief complaint of Cough and fever, described as moderate, Quality is described as other (denies pain), and is localized to the chest. Patient started experiencing this day(s) (10) and it has been constant. No relieving factors improve symptom(s), No exacerbating factors reported . Patient notes cough, diaphoresis, fever/chills and malaise; denies confusion. Patient did receive the following treatments prior to arrival, other (OTC meds) Related Data Home Medications Medication Instructions Recorded Confirmed blood sugar diagnostic (Accu-Chek #100 ea 02/24/20 04/19/22 Guide test strips) blood-glucose meter (Accu-Chek #1 ea 02/24/20 04/19/22 Guide Glucose Meter) lancets (Accu-Chek Multiclix #100 ea 03/09/20 04/19/22 Lancet) blood sugar diagnostic (Accu-Chek #100 ea 04/04/21 04/19/22 Guide test strips) flash glucose scanning reader #1 ea 05/07/21 04/19/22 (FreeStyle Sven 14 Day [place]) flash glucose sensor (FreeStyle #2 ea 05/07/21 04/19/22 Sven 14 Day Sensor kit) alprazolam 0.5 mg tablet 0.5 mg PO HS PRN insomnia #5 tabs 05/27/21 04/20/22 chlorthalidone 25 mg tablet 25 mg PO DAILY #90 tabs 08/09/21 04/20/22 lisinopril 20 mg tablet 20 mg PO DAILY #90 tabs 08/09/21 04/20/22 sitagliptin 50 mg-metformin 1,000 1 tab PO BID #180 tabs 02/04/22 04/20/22 mg tablet (Janumet) benzonatate 100 mg capsule 100 mg PO TID PRN cough #14 caps 04/20/22 levofloxacin 750 mg tablet 750 mg PO DAILY #4 tabs 04/20/22 Previous Rx's Medication Instructions Recorded blood sugar diagnostic (Accu-Chek #100 ea 02/24/20 Guide test strips) blood-glucose meter (Accu-Chek #1 ea 02/24/20 Guide Glucose Meter) lancets (Accu-Chek Multiclix #100 ea 03/09/20 Lancet) blood sugar diagnostic (Accu-Chek #100 ea 04/04/21 Guide test strips) flash glucose scanning reader #1 ea 05/07/21 (FreeStyle Sven 14 Day [place]) flash glucose sensor (FreeStyle #2 ea 05/07/21 Sven 14 Day Sensor kit) alprazolam 0.5 mg tablet 0.5 mg PO HS PRN insomnia #5 tabs 05/27/21 chlorthalidone 25 mg tablet 25 mg PO DAILY #90 tabs 08/09/21 lisinopril 20 mg tablet 20 mg PO DAILY #90 tabs 08/09/21 sitagliptin 50 mg-metformin 1,000 1 tab PO BID #180 tabs 02/04/22 mg tablet (Janumet) benzonatate 100 mg capsule 100 mg PO TID PRN cough #14 caps 04/20/22 levofloxacin 750 mg tablet 750 mg PO DAILY #4 tabs 04/20/22 Allergies Allergy/AdvReac Type Severity Reaction Status Date / Time Penicillins Allergy Severe Anaphylaxsi Verified 04/19/22 12:02 s General Stated Complaint: RespSymp JYOTI: 4 Review of Systems Constitutional Constitutional: Denies body ache(s), Reports chills, Reports fatigue, Reports fever(s), Denies headache(s) and Reports malaise Eyes Eyes: Denies eye discharge ENT Ears, Nose, Mouth, and Throat: Reports as per HPI, Denies otalgia, Denies headache(s), Reports nasal congestion, Denies nasal discharge, Denies neck pain, Denies sore throat and Denies throat swelling Cardiovascular Cardiovascular: Denies chest pain and Denies dyspnea Respiratory Respiratory: Reports chest congestion, Reports cough, Denies dyspnea and Denies wheezing Gastrointestinal Gastrointestinal: Denies nausea and Denies vomiting Musculoskeletal Musculoskeletal: Denies joint swelling and Denies neck pain Integumentary/Breasts Skin/Breast: Denies rash Neurologic Neurologic: Denies headache(s) Endocrine Endocrine: Reports fatigue Allergic/Immunologic Allergic/Immunologic: Denies throat swelling and Denies wheezing PFSH All Active Problems (Updated 04/20/22 @ 21:43 by Demetrius Thompson NP) Pneumonia (Acute) Dysthymic (Acute) Cellulitis (Acute) Epistaxis (Acute) Hammertoe of right foot (Acute) DM type 2 (diabetes mellitus, type 2) (Acute) with dietary indiscretion Prostatism (Acute) Essential hypertension (Acute) Thyroid nodule (Acute) NAMITA (obstructive sleep apnea) (Acute) Patient new to facility (Chronic) BPH NOS w ur obs/LUTS (Acute) 10/22/18 DR. 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 Abrasion (Acute) Abrasion, right lower leg, initial encounter (Acute) Senile purpura (Acute) [place] (Acute) Medical History Borderline type 2 diabetes mellitus BPH (benign prostatic hyperplasia) ED (erectile dysfunction) HTN (hypertension) Overweight Sleep apnea no device Surgical History Colonoscopy - MAC Hydrocelectomy S/P dilation of urethra S/P TURP (transurethral resection of prostate) Transurethral prostatectomy Family History Mother Neoplasm esophageal cancer Father Heart disease Social History Smoking/Tobacco Use Status: Former Tobacco Use Quit Date: 08/24/79 Second Hand Exposure: No Smoking risk assessment performed?: Yes Alcohol Intake: never Drug use: Never Substance use type: does not use Do you feel safe at home: Yes Do you feel safe in your relationship?: Yes Exam Const General: cooperative, comfortable and no acute distress Orientation: alert and awake HENUT Head: normal to inspection, normocephalic and atraumatic Ears: hearing grossly normal bilaterally and TM's normal bilaterally General nose exam: external nose normal Face and sinus: no erythema Mouth: oral mucosae normal, no drooling, no muffled voice and no trismus Throat: posterior oropharynx normal Neck Neck: normal visual inspection, full ROM, no lymphadenopathy, no meningeal signs, trachea midline and supple Resp Effort & Inspection: normal respiratory effort, able to speak in complete sentences and cough Quality of cough: dry Auscultation: clear to auscultation bilaterally Cardio Rate: regular rate Rhythm: regular rhythm Heart Sounds: S1 normal, S2 normal, normal S1 and S2, no click, no gallops, no murmurs and no rubs Skin General skin exam: no rashes or lesions noted and dry skin (warm) Neuro General: patient alert, patient awake, patient oriented x3, gait normal and moves all extremities Cognition: normal cognition Speech: speech normal Course Vital Signs Vital signs: Vital Signs Temperature 36.9 C 04/20/22 21:21 Pulse 71 04/20/22 21:21 Respiratory Rate 18 04/20/22 21:21 Blood Pressure 130/104 H 04/20/22 21:21 Pulse Oximetry 95 04/20/22 21:21 Temperature 36.9 C 04/20/22 21:21 Temperature Source Oral 04/20/22 21:21 Pulse 71 04/20/22 21:21 Respiratory Rate 18 04/20/22 21:21 Respiratory Effort 04/20/22 21:25 Blood Pressure 130/104 H 04/20/22 21:21 Pulse Oximetry 95 04/20/22 21:21 Pain Level 8 04/20/22 21:21
--- NOTE | 2022-04-20 21:50 | NUR.NOTE ---
Referral faxed to [facility] to f/u in one week for pneumonia.Nursing Note:
[2022-04-20] MEDS: levoFLOXacin 500 MG, levoFLOXacin 250 MG 750 MG PO (21:58)
== END 2022-04-20 21:59 | disposition home or self-care (01) ==
PROVIDERS: Emergency Provider Nurse Practitioner Family; PCP Family Medicine
DX: J18.9 Pneumonia, unspecified organism (principal); I10 Essential (primary) hypertension; Z87.891 Personal history of nicotine dependence
CPT/HCPCS: 99283; 99284

== ENCOUNTER 2022-10-20 02:43 | Outpatient (CLI) | payer MEDICARE, SELFPAY ==
[2022-10-20 12:54] LABS: Calculated LDL 48 mg/dL (<100); Cholesterol 133 mg/dL (<200); Estimated GFR 75.61 (mL/min/1.73m2); HDL Cholesterol 79 mg/dL (40-60); Potassium 4.5 mmol/L (3.5-5.1); Triglyceride 34 mg/dL (<150)
== END 2022-10-20 02:44 | disposition home or self-care (01) ==
LOC: LOS 02:43
PROVIDERS: PCP Family Medicine; Visit Provider Family Medicine
DX: E78.5 Hyperlipidemia, unspecified (principal); I10 Essential (primary) hypertension
CPT/HCPCS: 36415; 80061; 82565; 84132

== ENCOUNTER → 2023-11-23 16:49 | Outpatient (CLI) | payer MEDICARE, SELFPAY ==
--- NOTE | 2023-11-23 15:57 | DI.RAD_ITS ---
Exam(s) XR HAND LT COMPLETE EXAM: XR HAND LT COMPLETE CLINICAL HISTORY: evaluate pathology M79.642 PAIN LEFT HAND. TECHNIQUE: 2D digital imaging was performed. COMPARISON: No exams were available for comparison FINDINGS: 3 views No evidence of acute fracture nor dislocation. No radiopaque foreign body. Advanced degenerative ch anges are noted at the 1st carpometacarpal joint. Metacarpophalangeal joints appear unremarkable as do the interphalangeal joints. IMPRESSION: No acute osseous findings. There are advanced degenerative changes noted at the 1st carpometacarpal joint. DATA REPOSITORY: RADIATION DOSE DELIVERED:
== END ==
PROVIDERS: PCP Family Medicine; Visit Provider Nurse Practitioner Family
DX: M79.642 Pain in left hand (principal); M18.12 Unilateral primary osteoarthritis of first carpometacarpal joint, left hand
CPT/HCPCS: 73130

== ENCOUNTER → 2024-03-30 13:52 | Outpatient (BNVA) | payer MEDICARE, SELFPAY | PROVIDERS: PCP Family Medicine; Referring Provider Family Medicine; Visit Provider Student in an Organized Health Care Education/Training Program | DX: M65.342 Trigger finger, left ring finger (principal) | CPT/HCPCS: 99213 ==

== ENCOUNTER → 2024-04-27 09:11 | Outpatient (BNVA) | payer MEDICARE, SELFPAY | PROVIDERS: PCP Family Medicine; Referring Provider Family Medicine; Visit Provider Student in an Organized Health Care Education/Training Program | DX: M65.342 Trigger finger, left ring finger (principal); E11.9 Type 2 diabetes mellitus without complications | CPT/HCPCS: 36416; 83036; 99213 ==

== ENCOUNTER 2024-08-25 09:57 | Outpatient (CLI) | payer MEDICARE, SELFPAY ==
[2024-08-25 13:04] LABS: CREATININE 0.9 mg/dL (0.70-1.30); Calculated LDL 54 mg/dL (<100); Cholesterol 152 mg/dL (<200); Estimated GFR 84.74 (mL/min/1.73m2); HDL Cholesterol 86 mg/dL (40-60); Potassium 4.6 mmol/L (3.5-5.1); Triglyceride 61 mg/dL (<150)
== END 2024-08-25 09:58 | disposition home or self-care (01) ==
LOC: LOS 09:57
PROVIDERS: PCP Family Medicine; Referring Provider Family Medicine; Visit Provider Family Medicine
DX: I10 Essential (primary) hypertension (principal); E78.5 Hyperlipidemia, unspecified
CPT/HCPCS: 36415; 80061; 82565; 84132

== ENCOUNTER 2025-03-14 12:40 | Emergency (ER) | payer MEDICARE, SELFPAY ==
[2025-03-14 12:45] VITALS: BP 165/61; PULSE 87; RESP 20; TEMP 36.8; O2SAT 93
--- NOTE | 2025-03-14 12:45 | RT.EKG_ITS ---
APPROVED REPORT Exam: Resting ECG Reason for Exam: Syncope Patient Location: E HR:77 bpm ECG Measurements Heart Rate 77 AXIS DC 171 P -37 QRSd 95 QRS 69 QT 359 T 39 QTc 405 Conclusion Sinus rhythm 77 normal axis no stemi
[2025-03-14 12:53] VITALS: RESP 20
[2025-03-14 13:01] VITALS: BP 144/84; BP 146/85; BP 152/91; PULSE 84; PULSE 89; PULSE 91
[2025-03-14 13:13] LABS: Abs Immature Grans 0.01 10^3/uL (0.0-0.06); HCT 45.5 % (40.0-50.0); HGB 14.7 g/dL (13.5-17.5); Immature Grans % 0.1 %; MCH 28.7 pg (27.0-33.0); MCHC 32.3 % (32.0-36.0); MCV 89 fL (80-95); MPV 9.6 fL (8.0-11.0); Platelet Count 230 10^3/uL (130-400); RBC 5.13 10^6/uL (4.36-5.78); RDW 13.3 % (11.8-14.1); RDW-SD 43.8 fL; WBC 7.45 10^3/uL (4.4-10.8)
[2025-03-14 14:00] LABS: ALT 41 U/L (16-63); AST 34 U/L (15-37); Albumin 4.2 g/dL (3.4-5.0); Alkaline Phosphatase 62 U/L (46-116); Anion Gap 14.2 mmol/L (3-11); BUN 16 mg/dL (7-18); Bilirubin, Total 0.8 mg/dL (0.2-1.0); CO2 23.8 mmol/L (21.0-32.0); Calcium 9.7 mg/dL (8.5-10.1); Chloride 102 mmol/L (98-107); Estimated GFR 87.81 (mL/min/1.73m2); Glucose 159 mg/dL (74-106); Magnesium 1.9 mg/dL (1.8-2.4); Potassium 4.2 mmol/L (3.5-5.1); Sodium 140 mmol/L (136-145); TSH 0.74 uIU/mL (0.36-3.74); Total Protein 8.1 g/dL (6.4-8.2)
[2025-03-14 14:10] LABS: Troponin I 6 ng/L (<or=76)
--- NOTE | 2025-03-14 14:39 | W.ED.GENAD ---
Discharge Plan Disposition Patient Disposition: Home Condition: Stable Discharge Details Clinical Impression: Pre-syncope Primary Care Provider: Wes Enrique ED Provider: Rajesh Gonzalez Home Meds and New Rx's Prescriptions: No Action tirzepatide 2.5 mg/0.5 mL pen injector 2.5 mg subcut QWEEK Qty: 2 11RF (DME) Accu-Chek Guide test strips Strip See Dose Instructions .ROUTE .MEDSUPPLY Qty: 200 3RF Dose Instruction: As directed Rx Instructions: test BID (DME) Accu-Chek Guide test strips Strip See Rx Instructions .ROUTE .MEDSUPPLY Qty: 100 3RF Rx Instructions: test once daily Janumet 50-1,000 mg tablet 1 tab PO BID Qty: 180 3RF (DME) lancets [Accu-Chek Softclix Lancets] Misc See Rx Instructions .Route Qty: 100 4RF Rx Instructions: TEST ONCE DAILY (DME) blood-glucose meter [Accu-Chek Guide Glucose Meter] Misc See Rx Instructions .ROUTE .MEDSUPPLY Qty: 1 0RF Rx Instructions: As directed hydrochlorothiazide 12.5 mg tablet 12.5 mg PO DAILY Qty: 90 3RF lisinopril 20 mg tablet 20 mg PO DAILY Qty: 90 3RF Discharge Instructions Additional Instructions: Your EKG and blood work today are unremarkable. Symptoms likely related to position change. No evidence of a stroke on physical examination or cardiac etiology. Please monitor your symptoms and follow-up with PCP, but if symptoms return persist or you have other concerns, please return to the emergency department. HPI General Date/Time Provider Initiated Documentation: 03/14/25 13:00. Limitations to Documentation: no limitations. Information obtained by: patient. HPI Narrative: 84-year-old gentleman with past medical history of NAMITA, hypertension, diabetes presents for evaluation of near syncope. He reports that he was feeling fine until yesterday. He states yesterday his big dog pulled on his hands and he got a skin tear, he did hit his head on the car, but did not fall down or lose consciousness. This occurred yesterday morning and states that he felt fine after that. He reports that he felt really lightheaded when he stood up this morning. This occurred again at urgent care. Denies headache or chest pain or shortness of breath patient Related Data Home Medications ?Medication ?Instructions ?Recorded ?Confirmed blood sugar diagnostic (Accu-Chek #100 ea 05/06/24 03/14/25 Guide test strips) sitagliptin phosphate 50 1 tab PO BID #180 tabs 08/11/24 03/14/25 mg-metformin 1,000 mg tablet (Janumet) Held on 11/17/24. Instructions: Changed by Provider blood-glucose meter (Accu-Chek #1 ea 11/10/24 03/14/25 Guide Glucose Meter) lancets (Accu-Chek Softclix #100 ea 11/10/24 03/14/25 Lancets) blood sugar diagnostic (Accu-Chek #200 ea 11/17/24 03/14/25 Guide test strips) tirzepatide 2.5 mg/0.5 mL 2.5 mg (0.5 mL) subcut QWEEK #2 mL 11/17/24 03/14/25 subcutaneous pen injector hydrochlorothiazide 12.5 mg tablet 12.5 mg PO DAILY #90 tabs 11/21/24 03/14/25 lisinopril 20 mg tablet 20 mg PO DAILY #90 tabs 11/21/24 03/14/25 Previous Rx's ?Medication ?Instructions ?Recorded blood sugar diagnostic (Accu-Chek #100 ea 05/06/24 Guide test strips) sitagliptin phosphate 50 1 tab PO BID #180 tabs 08/11/24 mg-metformin 1,000 mg tablet (Janumet) Held on 11/17/24. Instructions: Changed by Provider blood-glucose meter (Accu-Chek #1 ea 11/10/24 Guide Glucose Meter) lancets (Accu-Chek Softclix #100 ea 11/10/24 Lancets) blood sugar diagnostic (Accu-Chek #200 ea 11/17/24 Guide test strips) tirzepatide 2.5 mg/0.5 mL 2.5 mg (0.5 mL) subcut QWEEK #2 mL 11/17/24 subcutaneous pen injector hydrochlorothiazide 12.5 mg tablet 12.5 mg PO DAILY #90 tabs 11/21/24 lisinopril 20 mg tablet 20 mg PO DAILY #90 tabs 11/21/24 Allergies Allergy/AdvReac Type Severity Reaction Status Date / Time Penicillins Allergy Severe Anaphylaxsi Verified 03/14/25 11:49 s General Stated Complaint: [id number] JYOTI: 3 Exam Narrative Exam Narrative: Review of Systems: All systems reviewed & are unremarkable except as noted in HPI and below Well-developed, no acute distress NCAT PERRL, normal conjunctiva RRR no murmur Unlabored respiratory effort clear bilaterally Nondistended abdomen Extremities w/o deformity, no cyanosis, no edema left hand with contusion and skin tear noted no active bleeding skin care well approximate no focal neurologic deficits normal gait no Romberg Appropriate mood and affect. Course Vital Signs Vital signs: Vital Signs Temperature 36.8 C 03/14/25 12:45 Pulse 87 03/14/25 12:45 Respiratory Rate 20 03/14/25 12:45 Blood Pressure 165/61 H 03/14/25 12:45 Pulse Oximetry 93 03/14/25 12:45 Temperature 36.8 C 03/14/25 12:45 Temperature Source Oral 03/14/25 12:45 Pulse 84 03/14/25 13:01 Respiratory Rate 20 03/14/25 12:53 Respiratory Effort Normal 03/14/25 12:53 Respiratory Depth Normal 03/14/25 12:53 Respiratory Pattern Normal 03/14/25 12:53 Blood Pressure 146/85 H 03/14/25 13:01 Blood Pressure Position Sitting 03/14/25 12:45 Pulse Oximetry 93 03/14/25 12:45 Oxygen Delivery Method Room Air 03/14/25 12:45 Oxygen Flow Rate 0 03/14/25 12:45 Pain Level 0 03/14/25 12:45 Lab/Test Results Lab/Test Results: Laboratory Tests Range/Units 03/14/25 03/14/25 13:05 13:43 WBC (4.4-10.8) 10^3/uL 7.45 RBC (4.36-5.78) 10^6/uL 5.13 Hgb (13.5-17.5) g/dL 14.7 Hct (40.0-50.0) % 45.5 MCV (80-95) fL 89 MCH (27.0-33.0) pg 28.7 MCHC (32.0-36.0) % 32.3 RDW (11.8-14.1) % 13.3 Plt Count (130-400) 10^3/uL 230 MPV (8.0-11.0) fL 9.6 Immature Gran % % 0.1 Neutrophils % % 67.2 Lymphocytes % % 24.2 Monocytes % % 7.2 Eosinophils % % 0.4 Basophils % % 0.9 Nucleated RBC % (0.0-0.3) % 0.0 Absolute Neutrophils (1.2-6.7) 10^3/uL 5.00 Absolute Lymphocytes (1.2-3.4) 10^3/uL 1.80 Absolute Monocytes (0.1-0.8) 10^3/uL 0.54 Absolute Eosinophils (0.0-0.7) 10^3/uL 0.03 Absolute Basophils (0.0-0.2) 10^3/uL 0.07 Sodium (136-145) mmol/L 140 Potassium (3.5-5.1) mmol/L 4.2 Chloride (98-107) mmol/L 102 Carbon Dioxide (21.0-32.0) mmol/L 23.8 Anion Gap (3-11) mmol/L 14.2 H BUN (7-18) mg/dL 16 Creatinine (0.70-1.30) mg/dL 0.8 Est GFR (CKD-EPI 2020) (mL/min/1.73m2) 87.81 Glucose (74-106) mg/dL 159 H Calcium (8.5-10.1) mg/dL 9.7 Magnesium (1.8-2.4) mg/dL 1.9 Total Bilirubin (0.2-1.0) mg/dL 0.8 AST (15-37) U/L 34 ALT (16-63) U/L 41 Alkaline Phosphatase (46-116) U/L 62 Troponin I Cancelled 6 Total Protein (6.4-8.2) g/dL 8.1 Albumin (3.4-5.0) g/dL 4.2 TSH (0.36-3.74) uIU/mL 0.74 Medical Decision Making Emergent evaluation of near syncope. Patient's episodes have not resulted in loss of consciousness. Not associated with any neurologic deficits or chest pain. His EKG was reviewed and independently interpreted: Sinus 77 normal axis normal intervals no STEMI. The patient is well. I suspect that his episodes are related to the event with his dog yesterday. I suspect that these are more postural changes since his symptoms only occur with position change Lab work reviewed no leukocytosis or anemia, no electrolyte derangement, mild hyperglycemia but no evidence of DKA. Cardiac enzyme unremarkable, thyroid function is normal. I do not suspect acute cardiac dysrhythmia or other metabolic derangement that have caused his symptoms. His orthostatic vital signs are unremarkable. Recommend close follow-up with PCP with any ongoing symptoms. Strict return precautions advised should the patient have recurrence of any of his symptoms. PFSH All Active Problems (Updated 03/14/25 @ 15:07 by Rajesh Gonzalez MD) Pre-syncope (Acute) Trigger finger (Acute) Trigger finger, left ring finger (Acute) Erectile dysfunction (Acute) Noncompliance (Acute) Dysthymic (Acute) Cellulitis (Acute) Epistaxis (Acute) Hammertoe of right foot (Acute) DM type 2 (diabetes mellitus, type 2) (Acute) with dietary indiscretion Prostatism (Acute) Essential hypertension (Acute) Thyroid nodule (Acute) NAMITA (obstructive sleep apnea) (Acute) Patient new to facility (Chronic) BPH NOS w ur obs/LUTS (Acute) 10/22/18 DR. 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 Abrasion (Acute) Abrasion, right lower leg, initial encounter (Acute) Senile purpura (Acute) [place] (Acute) Medical History Constipation HTN (hypertension) Borderline type 2 diabetes mellitus Overweight ED (erectile dysfunction) Sleep apnea no device BPH (benign prostatic hyperplasia) Surgical History S/P dilation of urethra S/P TURP (transurethral resection of prostate) Transurethral prostatectomy Hydrocelectomy Colonoscopy - MAC Family History Mother Neoplasm esophageal cancer Father Heart disease Social History Smoking/Tobacco Use Status: Former Tobacco Use tobacco type: cigarettes Quit Date: 08/24/79 Second Hand Exposure: Yes Smoking risk assessment performed?: Yes Alcohol Intake: current Alcohol Intake frequency: a few times a month Alcohol type: wine Drug use: Never Substance use type: does not use Counseling given: No Adopted: No Caregiver/Support person: No Foster care: No Household members: none Number of Children: 3 number of grandchildren: 5 Communication Needs: None Pets and animals: Yes Pets and animals: dog(s) Sexually active: Yes Do you think of yourself as: straight/heterosexual Current gender identity: male What is your relationship status?: How often do you talk on the phone with friends or family?: decline to answer How often do you get together with friends or relatives?: decline to answer How often do you attend yazidi or sabianism services?: decline to answer Do you belong to any clubs or organized social groups?: no Panel score (0-1 are the most socially isolated patients): 0 Jennie/Adventist: None Special jennie needs: No Working smoke detector in home: Yes Carbon monox detector in home: No Firearms in home: Yes Firearms unloaded and locked: Yes Do you feel safe at home: Yes Do you feel safe in your relationship?: Yes Victim of physical abuse: No Victim of emotional abuse: No Victim of sexual abuse: No PAWSS Have you Been Recently Intoxicated or Drunk Within the Last 30 days?: No Have you Ever Experienced Previous Episodes of Alcohol Withdrawal?: No Have you ever Experienced Withdrawal Seizures?: No Have you ever Experienced Delirium Tremens(DT)s?: No Have you ever undergone Alcohol Rehabilitation Treatment (i.e, inpt ot outpatient treatment programs)?: No Have you ever Experienced Blackouts?: No Have you ever Combined Alcohol with other Downers within the last 90 days?: No Have you ever Combined Alcohol with any other Substance of Abuse during the last 90 days?: No Positive Blood Alcohol level on Presentation? [PCS.BAL]: No Evidence of Increased Autonomic Activity (i.e. HR>120, tremor, sweating, agitation, nausea)?: No Result: 0
[2025-03-14 14:47] LABS: Troponin I 7 ng/L (<or=76)
[2025-03-14 15:35] VITALS: BP 156/71; PULSE 82; RESP 20; TEMP 36.8; O2SAT 94
== END 2025-03-14 15:41 | disposition home or self-care (01) ==
PROVIDERS: Emergency Provider Emergency Medicine; PCP Family Medicine
DX: R55 Syncope and collapse (principal); E11.9 Type 2 diabetes mellitus without complications; I10 Essential (primary) hypertension; Z79.84 Long term (current) use of oral hypoglycemic drugs; Z79.891 Long term (current) use of opiate analgesic
CPT/HCPCS: 36415; 80053; 82962; 93005; 99284; 83735; 84443; 84484; 85025; 93010

== ENCOUNTER 2025-04-21 06:46 | Day surgery (SDC) | payer MEDICARE, SELFPAY ==
[2025-04-21 06:49] VITALS: BP 141/66; PULSE 75; RESP 16; TEMP 36.5; O2SAT 97
[2025-04-21] MEDS: Tropicam./Phenyleph. (1/2.5%) 5 ML BTL OS ×3 (07:02→07:12)
--- NOTE | 2025-04-21 07:27 | ANES.PREOP_ITS ---
General Info Date of Service Date Performed: 04/21/25 Height: 5 ft 9 in Weight: 77.6 kg Body Mass Index (BMI): 25.2 Surgical Procedure: Operation Date: 04/21/25 08:40 Proposed Procedure Side Surgeon p Cataract Extraction with IOL Implant Left Rolo Heck MD Meds Allergies and Home Medications Allergies Allergy/AdvReac Type Severity Reaction Status Date / Time Penicillins Allergy Severe Anaphylaxsi Verified 04/21/25 07:00 s Home Medication ?Medication ?Instructions ?Recorded blood sugar diagnostic (Accu-Chek #100 ea 05/06/24 Guide test strips) blood-glucose meter (Accu-Chek #1 ea 11/10/24 Guide Glucose Meter) lancets (Accu-Chek Softclix #100 ea 11/10/24 Lancets) blood sugar diagnostic (Accu-Chek #200 ea 11/17/24 Guide test strips) tirzepatide 2.5 mg/0.5 mL 2.5 mg (0.5 mL) subcut QWEEK #2 mL 11/17/24 subcutaneous pen injector hydrochlorothiazide 12.5 mg tablet 12.5 mg PO DAILY #9 0 tabs 11/21/24 lisinopril 20 mg tablet 20 mg PO DAILY #90 tabs 10/24 09/17 Current Visit Medications: Current Medications Generic Name Dose Route Start Last Admin Trade Name Freq PRN Reason Stop Dose Admin Acetaminophen 1,000 mg 04/21/25 06:00 Acetaminophen 500 Mg Tab PO 05/21/25 05:59 Q4H PRN PRN Balanced Salt Solution 500 ml 04/21/25 06:00 Balanced Salt Soln.-Plus 500 Ml Bag OP 05/21/25 05:59 DIRECTED DAHLIA Miscellaneous Medication 0 ml 04/21/25 06:00 Prednisolone 1%, Moxifloxacin 0.5%, Bromfenac 0.09% 5.6ml Btl OS 05/21/25 05:59 DIRECTED DAHLIA Miscellaneous Medication 0 ml 04/21/25 06:00 04/21/25 07:12 Tropicam./Phenyleph. (1/2.5%) 5 Ml Btl OS 05/21/25 05:59 1 drp DIRECTED DAHLIA Administration Tetracaine HCl 0 ml 04/21/25 06:00 Tetracaine 0.5% 4 Ml Btl OS 05/21/25 05:[address] [facility] Active Problems Active Problems: Problem Status Onset Code Nuclear age-related cataract, left eye Acute H25.12 Skin tag Acute L91.8 Trigger finger Acute M65.30 Trigger finger, left ring finger Acute M65.342 Erectile dysfunction Acute N52.9 Noncompliance Acute Z91.199 Dysthymic Acute F34.1 Cellulitis Acute L03.90 Epistaxis Acute R04.0 Hammertoe of right foot Acute M20.41 DM type 2 (diabetes mellitus, type 2) Acute E11.9 Prostatism Acute N40.0 Essential hypertension Acute I10 Thyroid nodule Acute E04.1 NAMITA (obstructive sleep apnea) Acute G47.33 Patient new to facility Chronic BPH NOS w ur obs/LUTS Acute N40.1 Night sweats Acute R61 Episodic mood disorder Acute F39 Abrasion Acute T14.8XXA Abrasion, right lower leg, initial encounter Acute S80.811A Senile purpura Acute D69.2 [place] Acute L84 Medical History Medical History Constipation HTN (hypertension) Borderline type 2 diabetes mellitus Overweight ED (erectile dysfunction) Sleep apnea no device BPH (benign prostatic hyperplasia) Surgical History Surgical History S/P dilation of urethra S/P TURP (transurethral resection of prostate) Transurethral prostatectomy Hydrocelectomy Colonoscopy - MAC Tobacco Smoking/Tobacco Use Status: Former Tobacco Use Passive smoking exposure: Yes Second hand exposure: Yes Alcohol Alcohol Intake: current Alcohol intake frequency: a few times a month Alcohol type: wine Substance Use Substance use: Never Substance use type: does not use Vital Signs and Lab Results Vital Signs Most Recent Vital Signs in EMR: Most Recent Vital Signs Temp Pulse Resp BP Pulse Ox 36.5 C 75 16 141/66 H 97 04/21/25 06:49 04/21/25 06:49 04/21/25 06:49 04/21/25 06:49 04/21/25 06:49 Point of Care Results Point of Care Results: Finger Stick Blood Glucose 136 04/21/25 07:05 Lab Results Complete Metabolic Panel: Hemoglobin A1c, (4.5-5.7) 8.9 % H 04/11/25, 14:3 9 Imaging and Studies Imaging and Studies Study information below may be from another EMR and interpreted by another provider. Please see original notes in EMR for more complete details. EKG Summary: 02/2025:SR Anesthesia Assessment and Plan Anesthesia History Personal History: No History of Anesthesia Complications Family History: No Family History of Anesthesia Complications Exercise Tolerance Exercise Tolerance: Metabolic Equivalents>4 Pertinent Negatives Pertinent Negatives: No Symptoms of GERD Cardiac & Pulmonary Exam Cardiac Exam: Normal S1/S2 Heart Sounds Pulmonary Exam: Clear Bilateral Breath Sounds Implantable Cardiac Device Does patient have a Pacemaker or an ICD?: No Airway Exam Known Difficult Airway: No Mallampati Class: 2 Mouth Opening: Normal (> 3cm) Thyromental Distance: Greater than 3 cm Neck Range of Motion: Full ROM Neck Circumference: Normal Teeth Condition: Normal Dentition ASA Classification ASA Score: ASA 2 Emergency Case?: No NPO Status NPO Status: NPO Clears >2 hours, Solids >8 hours Anesthesia Plan Resuscitation Status: Full Code Anesthesia Technique: MAC Anesthesia Airway Planned: Natural Airway Monitors Used: Standard Monitors
[2025-04-21 07:29] VITALS: BMI 25.2
--- NOTE | 2025-04-21 08:02 | W.ANESPRE ---
General Info Date of Service Date Performed: 04/21/25 Height: 5 ft 9 in Weight: 77.6 kg Body Mass Index (BMI): 25.2 Surgical Procedure: Operation Date: 04/21/25 08:40 Proposed Procedure Side Surgeon p Cataract Extraction with IOL Implant Left Rolo Heck MD Meds Allergies and Home Medications Allergies Allergy/AdvReac Type Severity Reaction Status Date / Time Penicillins Allergy Severe Anaphylaxsi Verified 04/21/25 07:00 s Home Medication ?Medication ?Instructions ?Recorded blood sugar diagnostic (Accu-Chek #100 ea 05/06/24 Guide test strips) blood-glucose meter (Accu-Chek #1 ea 11/10/24 Guide Glucose Meter) lancets (Accu-Chek Softclix #100 ea 11/10/24 Lancets) blood sugar diagnostic (Accu-Chek #200 ea 11/17/24 Guide test strips) tirzepatide 2.5 mg/0.5 mL 2.5 mg (0.5 mL) subcut QWEEK #2 mL 11/17/24 subcutaneous pen injector hydrochlorothiazide 12.5 mg tablet 12.5 mg PO DAILY #90 tabs 11/21/24 lisinopril 20 mg tablet 20 mg PO DAILY #90 tabs 11/21/24 Current Visit Medications: Current Medications Generic Name Dose Route Start Last Admin Trade Name Freq PRN Reason Stop Dose Admin Acetaminophen 1,000 mg 04/21/25 06:00 Acetaminophen 500 Mg Tab PO 05/21/25 05:59 Q4H PRN PRN Balanced Salt Solution 500 ml 04/21/25 06:00 Balanced Salt Soln.-Plus 500 Ml Bag OP 05/21/25 05:59 DIRECTED DAHLIA Miscellaneous Medication 0 ml 04/21/25 06:00 Prednisolone 1%, Moxifloxacin 0.5%, Bromfenac 0.09% 5.6ml Btl OS 05/21/25 05:59 DIRECTED DAHLIA Miscellaneous Medication 0 ml 04/21/25 06:00 04/21/25 07:12 Tropicam./Phenyleph. (1/2.5%) 5 Ml Btl OS 05/21/25 05:59 1 drp DIRECTED DAHLIA Administration Tetracaine HCl 0 ml 04/21/25 06:00 Tetracaine 0.5% 4 Ml Btl OS 05/21/25 05:59 DIRECTED [facility] Active Problems Active Problems: Problem Status Onset Code Nuclear age-related cataract, left eye Acute H25.12 Skin tag Acute L91.8 Trigger finger Acute M65.30 Trigger finger, left ring finger Acute M65.342 Erectile dysfunction Acute N52.9 Noncompliance Acute Z91.199 Dysthymic Acute F34.1 Cellulitis Acute L03.90 Epistaxis Acute R04.0 Hammertoe of right foot Acute M20.41 DM type 2 (diabetes mellitus, type 2) Acute E11.9 Prostatism Acute N40.0 Essential hypertension Acute I10 Thyroid nodule Acute E04.1 NAMITA (obstructive sleep apnea) Acute G47.33 Patient new to facility Chronic BPH NOS w ur obs/LUTS Acute N40.1 Night sweats Acute R61 Episodic mood disorder Acute F39 Abrasion Acute T14.8XXA Abrasion, right lower leg, initial encounter Acute S80.811A Senile purpura Acute D69.2 [place] Acute L84 Medical History Medical History Constipation HTN (hypertension) Borderline type 2 diabetes mellitus Overweight ED (erectile dysfunction) Sleep apnea no device BPH (benign prostatic hyperplasia) Surgical History Surgical History S/P dilation of urethra S/P TURP (transurethral resection of prostate) Transurethral prostatectomy Hydrocelectomy Colonoscopy - MAC Tobacco Smoking/Tobacco Use Status: Former Tobacco Use Passive smoking exposure: Yes Second hand exposure: Yes Alcohol Alcohol Intake: current Alcohol intake frequency: a few times a month Alcohol type: wine Substance Use Substance use: Never Substance use type: does not use Vital Signs and Lab Results Vital Signs Most Recent Vital Signs in EMR: Most Recent Vital Signs Temp Pulse Resp BP Pulse Ox 36.5 C 75 16 141/66 H 97 04/21/25 06:49 04/21/25 06:49 04/21/25 06:49 04/21/25 06:49 04/21/25 06:49 Point of Care Results Point of Care Results: Finger Stick Blood Glucose 136 04/21/25 07:05 Lab Results Complete Metabolic Panel: Hemoglobin A1c, (4.5-5.7) 8.9 % H 04/11/25, 14:39 Imaging and Studies Imaging and Studies Study information below may be from another EMR and interpreted by another provider. Please see original notes in EMR for more complete details. EKG Summary: 02/2025:SR Anesthesia Assessment and Plan Anesthesia History Personal History: No History of Anesthesia Complications Family History: No Family History of Anesthesia Complications Exercise Tolerance Exercise Tolerance: Metabolic Equivalents>4 Implantable Cardiac Device Does patient have a Pacemaker or an ICD?: No Airway Exam Known Difficult Airway: No Mallampati Class: 2 Mouth Opening: Normal (> 3cm) Thyromental Distance: Greater than 3 cm Neck Range of Motion: Full ROM Neck Circumference: Normal Teeth Condition: Normal Dentition
[2025-04-21] MEDS: Duovisc Viscoelastic System EACH 1 EACH (08:15)
[2025-04-21] MEDS: Lidocaine 1% Pres-Free 5 ML VIAL (08:15)
[2025-04-21] MEDS: Moxifloxacin-PF 1 MG/ML VIAL (08:16)
[2025-04-21] MEDS: Phenylephrine/Lidocaine (15/10) MG/ML 1 ML VIAL (08:17)
[2025-04-21] MEDS: Balanced Salt Soln.-PLUS 500 ML BAG OP (08:18)
[2025-04-21] MEDS: Trypan Blue 0.06% 0.5 ML SYR (08:18)
[2025-04-21] MEDS: Povidone-Iodine Ophth 30 ML BTL (08:18)
[2025-04-21] MEDS: Tetracaine 0.5% 4 ML BTL OS (08:19)
[2025-04-21] MEDS: Prednisolone 1%, Moxifloxacin 0.5%, Bromfenac 0.09% 5.6ML BTL OS (08:19)
[2025-04-21 08:41] VITALS: BP 147/76; PULSE 70; RESP 18; TEMP 36.8; O2SAT 95
--- NOTE | 2025-04-21 08:41 | W.PM.DSUDISC ---
Date of service: 04/21/25 Discharge Plan Disposition Patient Disposition: Home Discharge Details Attending Provider: Rolo Heck Primary Care Provider: Wes Enrique Home Meds and New Rx's Prescriptions: No Action tirzepatide 2.5 mg/0.5 mL pen injector 2.5 mg subcut QWEEK Qty: 2 11RF (DME) Accu-Chek Guide test strips Strip See Dose Instructions .ROUTE .MEDSUPPLY Qty: 200 3RF Dose Instruction: As directed Rx Instructions: test BID (DME) Accu-Chek Guide test strips Strip See Rx Instructions .ROUTE .MEDSUPPLY Qty: 100 3RF Rx Instructions: test once daily (DME) lancets [Accu-Chek Softclix Lancets] Misc See Rx Instructions .Route Qty: 100 4RF Rx Instructions: TEST ONCE DAILY (DME) blood-glucose meter [Accu-Chek Guide Glucose Meter] Misc See Rx Instructions .ROUTE .MEDSUPPLY Qty: 1 0RF Rx Instructions: As directed hydrochlorothiazide 12.5 mg tablet 12.5 mg PO DAILY Qty: 90 3RF lisinopril 20 mg tablet 20 mg PO DAILY Qty: 90 3RF Discharge Instructions Stand Alone Forms: DSU Post-Op CataractTiffanie (DSU) Discharge Orders Discharge Orders: Discharge Order (Routine); Ordered 04/21/25 Ordered By: Rolo Heck DS: Diagnosis Discharge Diagnosis (1) Nuclear age-related cataract, left eye: Status: Resolved
--- NOTE | 2025-04-21 08:42 | ROE_ITS ---
Operative Note Operative Note PRE-OP DIAGNOSIS: Dense nuclear cataract, left eye POST-OP DIAGNOSIS: same PROCEDURE: Cataract extraction using phacoemulsification with intraocular lens implant, left eye SURGEON: Rolo Heck ANESTHESIA TYPE: Local By Surgeon and MAC Refer to Anesthesia Record PATHOLOGY: none sent COMPLICATIONS: None Patient was transported to: same day Patient's condition: stable Implants: Chris Clareon [id number] Indications: Progressive decreased vision due to cataract, left eye Procedure Description: CATARACT SURGERY OPERATIVE REPORT PREOPERATIVE DIAGNOSIS: Dense nuclear cataract, left eye POSTOPERATIVE DIAGNOSIS: Same OPERATION: Cataract extraction using phacoemulsification with posterior chamber intraocular lens implant, left eye. IOL: IOL Maintenance Machinist/Model: Chris Clareon [id number] IOL Power: + 20.0 diopters IOL Serial Number: [id number] Optic Diameter: 6.0mm Haptic/Overall Diameter: 13.0mm PHACO INFO: Chris Centurion Vision System with OZil and Active Fluidics Cumulative Dispersed Energy (CDE): 21.04 seconds SURGEON: Rolo Heck MD, JONI ANESTHESIA: Monitored Anesthesia Care (MAC), with local sub-tenon's anesthetic infiltration COMPLICATIONS: None SPECIMENS: None INDICATIONS FOR PROCEDURE: The patient is a 84-year-old male with history of diminished visual acuity in his left eye secondary to exudative macular degeneration. However, he has developed a dense nuclear cataract in the left eye which prevents a clear view of the retina. Cataract surgery is undertaken in attempt to improve and maximize his vision, but also clear the visual axis for ongoing monitoring of the macular degeneration. See office notes for detailed information. PROCEDURE: The correct surgical eye was identified and marked as the left eye and the pupil was dilated in the preoperative area using mydriatics and cycloplegics. The dilated pupil size was 7.0 mm. The patient elected to proceed without oral sedation. The patient was brought to the operating room where cardiopulmonary monitoring was instituted and surgical time-out was performed, confirming the correct operative eye and IOL power. Topical anesthesia was administered and ophthalmic povidone-iodine 5% was instilled into the conjunctival fornices. The soraya-ocular area was prepped with Betadine 10% solution and draped in the usual sterile fashion for intraocular surgery, including an aperture drape. A Tegaderm transparent film dressing was cut in half and used to cover the lashes and lid margins. Care was taken to sequester the lashes and lid margins under the Tegaderm dressing. A lid speculum was placed between the lids of the operative eye and the Chris LuxOR Revalia operating microscope was maneuvered into position. Mark scissors were then used to make a conjunctival buttonhole approximately 6mm posterior to the limbus in the inferonasal quadrant. Blunt dissection was carried out to expose bare sclera, and a blunt-tipped sub-tenon?s anesthesia cannula was introduced and passed posteriorly along the globe where non- preserved plain lidocaine was injected into posterior sub-Tenon?s space. A sideport knife was used to make a paracentesis port. Intraocular phenylephrine/lidocaine was injected into the anterior chamber. The anterior chamber was then filled with viscoelastic. A keratome knife was used construct a two-plane clear corneal tunnel extending 2.0mm into clear cornea. A flap was raised on the anterior capsule and capsulorhexis forceps were used to complete a continuous curvilinear capsulorhexis of 5.0 mm. Balanced salt solution was then used to perform cortical cleaving hydrodissection and nuclear hydrodelineation until the lens could be freely rotated within the capsular bag. The lens nucleus was then disassembled and removed within the capsular bag and iris plane using phacoemulsification. Residual cortical material was removed using the irrigation/aspiration handpiece. The posterior capsule was carefully polished to remove as much residual lens epithelial cells as safely possible. The capsular bag was then inflated and the anterior chamber deepened with viscoelastic. The lens implant described above was inserted into the capsular bag using the Chris Autonome Injector. A Kuglen hook was used to dial the IOL into position. Residual viscoelastic was then removed first from posterior to the IOL, then from the anterior chamber using the I/A handpiece. The lens implant was noted to center nicely within the capsular bag. The incisions were stromally hydrated, and the anterior chamber was reformed using BSS. Then 0.5cc of moxifloxacin 1.0mg/ml were injected into the capsular bag and anterior chamber. The incis ions were checked with a Weck spear and found to be secure. Several drops of ophthalmic povidone-iodine 5% were then applied to the eye followed by two drops of combination steroid/NSAID/antibiotic solution. The drapes were removed and a clear plastic protective eye shield was placed over the eye. The patient was then returned to Same Day Surgery in stable condition. Date of Procedure: 04/21/25
--- NOTE | 2025-04-21 08:54 | W.ANESPOSTOP ---
Postoperative Evaluation Date, Time and Location Date Performed: 04/21/25 Time Performed: 08:54 Patient Location: Day Surgery Unit Vital Signs Most Recent Imported Vital Signs: Most Recent Vital Signs Temp Pulse Resp BP Pulse Ox 36.8 C 70 18 147/76 H 95 04/21/25 08:41 04/21/25 08:41 04/21/25 08:41 04/21/25 08:41 04/21/25 08:41 Pain Score Most Recent Pain Score: Most Recent Pain Score Pain Level 0 04/21/25 08:41 Assessment Mental Status: Awake (Alert & Oriented to Patient Baseline) Airway and Respiratory Function: Patent airway with normal (patient baseline) respiratory exam Cardiovascular Function: Hemodynamically Stable Hydration Status: Adequately Hydrated Nausea & Vomiting: No Nausea or Vomiting Pain: Pt. Denies Any Pain Peripheral Nerve Block: Patient did not receive a nerve block
== END 2025-04-21 09:00 | disposition home or self-care (01) ==
LOC: SUR 06:47
PROVIDERS: PCP Family Medicine; Visit Provider Ophthalmology
PROC: (CPT 66984; principal; 2025-04-21 08:30)
DX: H25.12 Age-related nuclear cataract, left eye (principal)
CPT/HCPCS: 66984; 00123; V2632; J2003

== ENCOUNTER 2025-05-05 11:52 | Day surgery (SDC) | payer MEDICARE, SELFPAY ==
[2025-05-05 11:55] VITALS: BP 135/81; PULSE 78; RESP 18; TEMP 36.2; O2SAT 93
[2025-05-05] MEDS: Tropicam./Phenyleph. (1/2.5%) 5 ML BTL OD ×3 (12:33→12:43)
[2025-05-05] MEDS: Duovisc Viscoelastic System EACH 1 EACH (12:56)
[2025-05-05] MEDS: Lidocaine 1% Pres-Free 5 ML VIAL (12:57)
[2025-05-05] MEDS: Moxifloxacin-PF 1 MG/ML VIAL (12:57)
[2025-05-05] MEDS: Povidone-Iodine Ophth 30 ML BTL (12:58)
[2025-05-05] MEDS: Phenylephrine/Lidocaine (15/10) MG/ML 1 ML VIAL (12:58)
[2025-05-05] MEDS: Trypan Blue 0.06% 0.5 ML SYR (12:59)
[2025-05-05] MEDS: Prednisolone 1%, Moxifloxacin 0.5%, Bromfenac 0.09% 5.6ML BTL OD (12:59)
[2025-05-05] MEDS: Balanced Salt Soln.-PLUS 500 ML BAG OP (12:59)
[2025-05-05] MEDS: Tetracaine 0.5% 4 ML BTL OD (13:00)
--- NOTE | 2025-05-05 13:19 | PDOC.ANES ---
Date of service: 05/05/25 Time of Service: 13:20 Anesthesia Note Report Anesthesia Note: Patient ate some roast beef at the grocery store an hour before our interaction at noon. Discussed NPO guidelines, discussed risk with patient, patients family member, and the surgeon. Surgeon and patient made a decision to proceed locally without anesthesia.
[2025-05-05 13:35] VITALS: BP 134/74; PULSE 67; RESP 16; TEMP 36.4; O2SAT 96
--- NOTE | 2025-05-05 13:36 | W.PM.DSUDISC ---
Date of service: 05/05/25 Discharge Plan Disposition Patient Disposition: Home Discharge Details Attending Provider: Rolo Heck Primary Care Provider: Wes Enrique Home Meds and New Rx's Prescriptions: No Action tirzepatide 2.5 mg/0.5 mL pen injector 2.5 mg subcut QWEEK Qty: 2 11RF (DME) Accu-Chek Guide test strips Strip See Dose Instructions .ROUTE .MEDSUPPLY Qty: 200 3RF Dose Instruction: As directed Rx Instructions: test BID (DME) Accu-Chek Guide test strips Strip See Rx Instructions .ROUTE .MEDSUPPLY Qty: 100 3RF Rx Instructions: test once daily (DME) lancets [Accu-Chek Softclix Lancets] Misc See Rx Instructions .Route Qty: 100 4RF Rx Instructions: TEST ONCE DAILY (DME) blood-glucose meter [Accu-Chek Guide Glucose Meter] Misc See Rx Instructions .ROUTE .MEDSUPPLY Qty: 1 0RF Rx Instructions: As directed hydrochlorothiazide 12.5 mg tablet 12.5 mg PO DAILY Qty: 90 3RF lisinopril 20 mg tablet 20 mg PO DAILY Qty: 90 3RF Discharge Instructions Stand Alone Forms: DSU Post-Op CataractTiffanie (DSU) Discharge Orders Discharge Orders: Discharge Order (Routine); Ordered 05/05/25 Ordered By: Rolo Heck DS: Diagnosis Discharge Diagnosis (1) Nuclear age-related cataract, right eye: Status: Resolved
--- NOTE | 2025-05-05 13:41 | W.PM.OP ---
Operative Note Operative Note PRE-OP DIAGNOSIS: Dense nuclear cataract, right eye POST-OP DIAGNOSIS: same PROCEDURE: Cataract extraction using phacoemulsification with intraocular lens implant, right eye SURGEON: Rolo Heck ANESTHESIA TYPE: Local By Surgeon and MAC Refer to Anesthesia Record ESTIMATED BLOOD LOSS: 0 PATHOLOGY: none sent COMPLICATIONS: None Patient was transported to: same day Patient's condition: stable Implants: Chris Clareon [id number] Indications: Progressive decreased vision due to cataract, right eye Procedure Description: CATARACT SURGERY OPERATIVE REPORT PREOPERATIVE DIAGNOSIS: Dense nuclear cataract, right eye POSTOPERATIVE DIAGNOSIS: Same OPERATION: Cataract extraction using phacoemulsification with posterior chamber intraocular lens implant, right eye. IOL: IOL Building Carpenter Helper/Model: Chris Clareon [id number] IOL Power: + 20.5 diopters IOL Serial Number: [id number] Optic Diameter: 6.0mm Haptic/Overall Diameter: 13.0mm PHACO INFO: Chris Centurion Vision System with OZil and Active Fluidics Cumulative Dispersed Energy (CDE): 26.25 seconds SURGEON: Rolo Heck MD, JONI ANESTHESIA: local sub-tenon's anesthetic infiltration COMPLICATIONS: None SPECIMENS: None INDICATIONS FOR PROCEDURE: The patient is an 84-year-old male with history of diminished visual acuity in both eyes secondary to the development of dense bilateral nuclear cataracts. He is significantly symptomatic that he desires cataract surgery and attempt to improve and maximize his vision. He has already undergone cataract surgery in the left eye and is doing well postoperatively. He now presents for cataract surgery in the right eye. See office notes for detailed information. PROCEDURE: The correct surgical eye was identified and marked as the right eye and the pupil was dilated in the preoperative area using mydriatics and cycloplegics. The patient elected to proceed without oral sedation. The patient was brought to the operating room where cardiopulmonary monitoring was instituted and surgical time-out was performed, confirming the correct operative eye and IOL power. Topical anesthesia was administered and ophthalmic povidone-iodine 5% was instilled into the conjunctival fornices. The soraya-ocular area was prepped with Betadine 10% solution and draped in the usual sterile fashion for intraocular surgery, including an aperture drape. A Tegaderm transparent film dressing was cut in half and used to cover the lashes and lid margins. Care was taken to sequester the lashes and lid margins under the Tegaderm dressing. A lid speculum was placed between the lids of the operative eye and the Chris LuxOR Revalia operating microscope was maneuvered into position. Mark scissors were then used to make a conjunctival buttonhole approximately 6mm posterior to the limbus in the inferonasal quadrant. Blunt dissection was carried out to expose bare sclera, and a blunt-tipped sub-tenon?s anesthesia cannula was introduced and passed posteriorly along the globe where non-preserved plain lidocaine was injected into posterior sub-Tenon?s space. A sideport knife was used to make a paracentesis port. VisionBlue was injected into the anterior chamber and allowed to sit for 30 seconds. Intraocular phenylephrine/lidocaine was injected into the anterior chamber. The anterior chamber was then filled with viscoelastic. A keratome knife was used to construct a two--plane clear corneal tunnel extending 2.0mm into clear cornea. A flap was raised on the anterior capsule and capsulorhexis forceps were used to complete a continuous curvilinear capsulorhexis of []mm. Balanced salt solution was then used to perform cortical cleaving hydrodissection and nuclear hydrodelineation until the lens could be freely rotated within the capsular bag. The lens nucleus was then disassembled and removed within the capsular bag and iris plane using phacoemulsification. The lens nucleus was quite dense. A deep central groove was sculpted into the nucleus, which was then rotated 180 degrees and the groove continued. The nucleus was chopped into 2 halves, and each half was subchopped into multiple smaller fragments under additional dispersive viscoelastic protection. Residual cortical material was removed using the I/A handpiece. The posterior capsule was carefully polished to remove as much residual lens epithelial cells as safely possible. The capsular bag was then inflated and the anterior chamber deepened with cohesive viscoelastic. The lens implant described above was inserted into the capsular bag using the Chris Autonome Injector. A Kuglen hook was used to dial the IOL into position. Residual viscoelastic was then removed first from posterior to the IOL, then from the anterior chamber using the I/A handpiece. The lens implant was noted to center nicely within the capsular bag. The incisions were stromally hydrated, and the anterior chamber was reformed using BSS. Then 0.5cc of moxifloxacin 1.0mg/ml were injected into the capsular bag and anterior chamber. The incisions were checked with a Weck spear and found to be secure. Several drops of ophthalmic povidone-iodine 5% were then applied to the eye followed by two drops of combination steroid/NSAID/antibiotic solution. The drapes were removed and a clear plastic protective eye shield was placed over the eye. The patient was then returned to Same Day Surgery in stable condition. Date of Procedure: 05/05/25
== END 2025-05-05 13:52 | disposition home or self-care (01) ==
LOC: SUR 11:52
PROVIDERS: PCP Family Medicine; Visit Provider Ophthalmology
PROC: (CPT 66984; principal; 2025-05-05 14:30)
DX: H25.11 Age-related nuclear cataract, right eye (principal); Z98.42 Cataract extraction status, left eye
CPT/HCPCS: 66984; 00123; V2632; J2003